=== PATIENT | male | born 1950 | race Caucasian/White ===

== ENCOUNTER → 2016-06-27 | Outpatient (CLI) | payer OTHER ==
[~2016-06-27] MED LIST: COMBIVENT INH; FLOMAX0.4 MG PO; LEVAQUIN 750 M750 MG PO; TENORMIN25 MG PO
[2016-06-27 16:09] LABS: CREATININE 0.8 mg/dL (0.6-1.3)
== END ==
LOC: ULTRA 13:02 → RAD 13:02 → CAT 13:02 → RAD 13:11
PROVIDERS: Internal Medicine Pulmonary Disease
DX: C15.9 Malignant neoplasm of esophagus, unspecified (principal); R06.02 Shortness of breath; M79.89 Other specified soft tissue disorders; R91.8 Other nonspecific abnormal finding of lung field; J98.11 Atelectasis; J18.9 Pneumonia, unspecified organism; J90 Pleural effusion, not elsewhere classified; R07.9 Chest pain, unspecified; M79.604 Pain in right leg; M79.605 Pain in left leg

== ENCOUNTER → 2016-07-14 | Outpatient (CLI) | payer OTHER | LOC: RAD 11:13 → SPEECH 11:13 → RAD 14:07 | DX: R13.12 Dysphagia, oropharyngeal phase (principal) ==

== ENCOUNTER 2016-09-15 10:22 | Inpatient (IN) | payer OTHER ==
[~2016-09-15] VITALS: Ht 175.3 cm; Wt 75.8 kg
[2016-09-15] VITALS (8 sets, daily range): BP systolic 86–114; BP diastolic 51–76
--- NOTE | ~2016-09-15 | 2DMMODE ---
[place] [address] [facility] [address] 2 D/M-MODE ECHOCARDIOGRAM Name: ASHWINI CRAMER Deshawn Room #: 205-P [facility] IN .R.#: [id number] Admission: 09/15/16 Attend Phys: Wu Hayes, Discharge: Date of : 50 Date of Service: 09/16/16 0944 Report #: [id number] THIS REPORT FOR: //name// APPROVED REPORT Study performed: 09/15/2016 11:34:04 EXAM: Comprehensive 2D, Doppler, and color-flow Echocardiogram Patient Location: ER Status: routine Other Information Study Quality: Adequate Indications Syncope, hypotension, bradycardia. 2D Dimensions RVDd: 27.91 mm LVEF(%): 51.42 (>50%) IVSd: 9.12 (7-11mm) LVOT Diam: 24.30 (18-24mm) LVDd: 34.96 mm PWd: 9.89 (7-11mm) LVDs: 26.02 (25-40mm) Aortic Root: 34.05 mm Hawkins's LVEF: 51.42 % Volumes Left Atrial Volume (Systole) Single Plane 4CH: 56.40 mL Single Plane 2CH: 55.88 mL LA ESV Index: 34.00 mL/m2 Aortic Valve AoV Peak Bharathi.: 0.74 m/s AO Peak Gr.: 2.18 mmHg LVOT Max P.26 mmHg LVOT Max V: 0.75 m/s AKIRA Vmax: 4.72 cm2 Mitral Valve E/A Ratio: 3.1 MV Decel. Time: 174.28 ms MV E Max Bharathi.: 1.63 m/s MV A Bharathi.: 0.53 m/s MV PHT: 50.54 ms IVRT: 46.14 ms [facility] [place] [address] 2 D/M-MODE ECHOCARDIOGRAM Name: ASHWINI CRAMER Room #: 205-P [facility] IN M.R.#: [id number] Admission: 09/15/16 Attend Phys: Wu Hayes, Discharge: Date of : 50 Date of Service: 09/16/16 0944 Report #: [id number] Pulmonary Valve PV Peak Bharathi.: 0.32 m/s PV Peak Gr.: 0.41 mmHg Tricuspid Valve TR Peak Bharathi.: 1.91 m/s RAP Estimate: 15.00 mmHg TR Peak Gr.: 14.64 mmHg RVSP: 30.00 mmHg Left Ventricle The left ventricle is normal size. There is normal LV segmental wall motion. There is normal left ventricular wall thickness. Left ventricular systolic function is normal. LVEF is 55%. Grade III - reversible restrictive diastolic dysfunction. Right Ventricle The right ventricle is normal size. Right ventricle appears hypokinetic. Atria Left atrium is mildly dilated. The right atrium size is normal. Aortic Valve Aortic valve leaflets are mildly thickened. Mild aortic regurgitation. Small aortic valve vegetation is present. There is no aortic valvular stenosis. Mitral Valve Mild mitral annular calcification. Mild-moderate mitral regurgitation Tricuspid Valve The tricuspid valve is normal in structure. There is moderate tricuspid regurgitation. The right atrial pressure is estimated at 15 mmHg. There is mild pulmonary hypertension with an estimated PAP of 30mmHg. Pulmonic Valve The pulmonary valve is normal in structure. Trace pulmonic regurgitation. Great Vessels Aortic root is mildly dilated. Ascending aorta is not well visualized. IVC is dilated and collapses <50% with inspiration. [facility] [address] [place] [address] 2 D/M-MODE ECHOCARDIOGRAM Name: ASHWINI CRAMER Deshawn Room #: 205-P [facility] IN .R.#: [id number] Admission: 09/15/16 Attend Phys: Wu Hayes, Discharge: Date of : 50 Date of Service: 09/16/16 0944 Report #: [id number] Pericardium No pericardial effusion Critical Notification Critical Value: Yes Physician Notified Date: 09/16/2016 Physician Name:Dr. Clay <Conclusion> Left ventricular systolic function is normal. There is normal LV segmental wall motion. EF 55% Grade III - reversible restrictive diastolic dysfunction. RV enlarged and hypokinetic Aortic valve leaflets are mildly thickened. Small aortic valve vegetation is present. Mild aortic regurgitation. No stenosis Mild-moderate mitral regurgitation There is mild pulmonary hypertension with an estimated PAP of 30mmHg. No pericardial effusion <ELECTRONICALLY SIGNED> By: Jose Alberto Lincoln MD, [facility] 09/16/1644 3 3 Jose Alberto Lincoln MD, FAC /INF
--- NOTE | ~2016-09-15 | EKG ---
[address] [address] ELECTROCARDIOGRAM REPORT Name: ASHWINI CRAMER Room #: 205- ADM IN M.R.#: [id number] Admission: 09/15/16 Attend Phys: Wu Hayes MD Discharge: Date of : 50 Report #: [id number] THIS REPORT FOR: //name// [facility] ED Test Date: 2016-09-15 Test Time: 10:34:59 Pat Name: ASHWINI CRAMER Department: Room: 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 HARTLEY : 1950 Requested By: Nyla George Order Number: [id number] MD: Jose Alberto Lincoln Measurements Intervals [place] Rate: 77 P: 31 UT: 254 QRS: 131 QRSD: 141 T: 25 QT: 452 QTc: 512 Interpretive Statements Sinus rhythm Prolonged UT interval Right bundle branch block Possible lateral infarct, old Compared to ECG 05/10/2016 16:03:[address] segment elevation no longer present Electronically Signed On 09-16-2016 8:17:08 CDT by Jose Alberto Lincoln [email or web address] <ELECTRONICALLY SIGNED> By: Jose Alberto Lincoln MD, FACC 09/16/16 0817 1034 1034 Jose Alberto Lincoln MD, [facility] /EPI
--- NOTE | ~2016-09-15 | 2DMMODE ---
[address] [address] 2 D/M-MODE ECHOCARDIOGRAM Name: ASHWINI CRAMER Room #: 205-P ADM IN M.R.#: [id number] Admission: 09/15/16 Attend Phys: Wu Hayes, Discharge: Date of : 50 Date of Service: 09/16/16 1119 Report #: [id number] THIS REPORT FOR: //name// APPROVED REPORT Study performed: 09/16/2016 08:10:52 EXAM: Comprehensive 2D, Doppler, and color-flow Echocardiogram Patient Location: [facility] Room #: 1 Status: stat Other Information Study Quality: Good Indications Arrhythmia Left Ventricle The left ventricle is normal size. There is normal left ventricular wall thickness. The left ventricular systolic function is normal. The left ventricular ejection fraction is within the normal range. LVEF is 55-60%. Right Ventricle The right ventricle is normal size. The right ventricular systolic function is normal. Atria Left atrium is dilated. Right atrium is at the upper limits of normal. Aortic Valve The aortic valve is normal in structure. Mitral Valve The mitral valve is normal in structure. Tricuspid Valve The tricuspid valve is normal in structure. Pulmonic Valve The pulmonary valve is normal in structure. Great Vessels [address] [address] 2 D/M-MODE ECHOCARDIOGRAM Name: ASHWINI CRAMER Room #: 205-P ADM IN M.R.#: [id number] Admission: 09/15/16 Attend Phys: Wu Hayes, Discharge: Date of : 50 Date of Service: 09/16/16 1119 Report #: [id number] The aortic root is normal in size. IVC is dilated and collapses <50% with inspiration. Pericardium There is no pericardial effusion. <Conclusion> The left ventricle is normal size. LVEF is 55-60%. Left atrium is dilated. The aortic valve is normal in structure. The mitral valve is normal in structure. The tricuspid valve is normal in structure. The pulmonary valve is normal in structure. IVC is dilated and collapses <50% with inspiration. <ELECTRONICALLY SIGNED> By: Edilson Self MD 09/16/16 1119 18 Edilson Self MD /INF
--- NOTE | ~2016-09-15 | D ---
[facility] [place] [address] DISCHARGE SUMMARY Name: ASHWINI CRAMER Room #: 205-P [facility] IN M.R.#: [id number] Admission: 09/15/16 Attend Phys: Wu Hayes MD Discharge: 09/17/16 Date of : 50 Report #: [id number] THIS REPORT FOR: //name// CC: Rose Mary Hayes DISCHARGE SUMMARY: 1. Heart block with dual chamber pacemaker implantation. 2. Syncope related to #1 above. 3. Esophageal cancer. HISTORY OF PRESENT ILLNESS: For the complete details of the history of present illness, see dictated history and physical briefly. The patient is a 66-year-old gentleman who presented to the Emergency Department following 3 syncopal episodes in the past 18 hours. While he was admitted for further evaluation. HOSPITAL COURSE: While on telemetry monitoring, complete heart block was identified. He was seen in consultation by Dr. Basilio Clay and underwent dual chamber pacemaker implantation with a [employer] device. His postprocedure course was uneventful. Pacing thresholds were excellent. DISCHARGE MEDICATIONS: Flomax 0.4 mg daily, atenolol 12.5 mg daily. Discharge medicines were reconciled. Discharge diet, low fat, low cholesterol, heart healthy diet. DISCHARGE FOLLOWUP: With Dr. Clay in 7-10 days for site check and followup with Dr. Bowens in 2-3 months. DISCHARGE ACTIVITY: As instructed post-pacemaker implantation. DISCHARGE CONDITION: Stable and improved. <ELECTRONICALLY SIGNED> By: Jose Alberto Lincoln MD, FACC 09/18/16 1050 0757 1606 Jose Alberto Lincoln MD, FACC /nt
--- NOTE | ~2016-09-15 | P ---
[facility] [place] [address] PROCEDURE REPORT Name: ASHWINI CRAMER Room #: 205-P ADM IN M.R.#: [id number] Admission: 09/15/16 Attend Phys: Wu Hayes MD Discharge: Date of : 50 Report #: [id number] THIS REPORT FOR: //name// CC: Rose Mary Hayes DATE OF SERVICE: 09/16/2016 PROCEDURE: Pacemaker insertion. PREOPERATIVE DIAGNOSIS: Syncope, right bundle branch block and third-degree heart block. HISTORY OF PRESENT ILLNESS: The patient is a 66-year-old who presents with 3 episodes of syncope at home. He had no prodrome. His EKG shows a first-degree AV block and a right bundle branch block. On telemetry overnight, he had frequent episodes of complete heart block with a ventricular escape in the 20s to 30s. He had an echo prior to the pacemaker showing normal LV size and function. He is here for dual-chamber pacemaker insertion. ANESTHESIA: The patient underwent MAC anesthesia with no anesthesia related complications. DESCRIPTION OF PROCEDURE: The patient underwent informed consent. We discussed the details of the procedure including the risks, which include, but not limited to bleeding, infection, vascular damage, cardiac perforation, and pneumothorax. He understood these risks and is willing to proceed. As such, he is brought to the EP laboratory in a fasting and sedated state and prepped and draped in a sterile fashion. He received IV antibiotics prior to initiation of the procedure and underwent a venogram showing patency of the left axillary vein. Next, 20 mL of lidocaine was injected below the level of left clavicle. Incision was made, pocket was created over the prepectoral fascia. An access was obtained twice in the left axillary vein. prior to attempting to place the lead, the patient did have an episode of complete heart block with a ventricular escape in the 30s, which lasted around 20-30 seconds. I quickly placed the sheath in and placed the lead into the right ventricular apical septum, which had adequate pacing and sensing thresholds. Next, I positioned an atrial lead into the right atrial appendage. Of note, there was not a lot of atrial movement, which may be due to the extensive radiation he had previously with some atrial fibrosis. We were able to get an adequate pacing and sensing threshold in the atrium. Both leads were sutured to the prepectoral fascia and the device was connected to leads. The pocket was closed in 2 layers using 2-0 for the deep layer, 3-0 for the middle layer and surgical glue was placed to the outer skin layer. He had no complications and no significant bleeding. The implanted pacemaker was a [employer] model #[id number], serial #[id number] [address] PROCEDURE REPORT Name: ASHWINI CRAMER Room #: 205-P [facility] IN M.R.#: [id number] Admission: 09/15/16 Attend Phys: Wu Hayes MD Discharge: Date of : 50 Report #: [id number] with an atrial lead that was a [employer] model #2088TC, 52 cm, serial #[id number] with a P-wave of 1 millivolt, pacing impedance of 410 ohms and the pacing threshold of 1 volt at 0.4 milliseconds. The RV lead was a [employer] model #2088TC, 58 cm, serial #[id number] with a R-wave of 2.8 millivolts, pacing impedance of 580 ohms and pacing threshold of 1 volt at 0.4 milliseconds. The device was programmed to the DDD 60-130 mode. CONCLUSIONS: 1. Successful dual-chamber pacemaker implantation. 2. Satisfactory atrial and ventricular pacing and sensing thresholds. By: 1136 1422 Basilio Clay MD /nt
[2016-09-15 10:55] LABS: HEMATOCRIT 36.5 % (42.0-52.0); MCH 27.6 pg (26.0-34.0); MCHC 32.8 g/dL (28.0-37.0); MCV 84.1 fL (80.0-100.0); PLATELET COUNT 173 thou/uL (150-400); RBC 4.34 mil/uL (4.50-6.00); RDW 18.2 % (10.5-14.5); WBC 4.7 thou/uL (4.0-11.0)
[2016-09-15 10:57] LABS: MANUAL DIFF YES
[2016-09-15 11:02] LABS: ANION GAP 8 mmol/L (7-16); BUN 15 mg/dL (7-18); CALCIUM 9.1 mg/dL (8.5-10.1); CHLORIDE 94 mmol/L (98-107); CO2 27 mmol/L (21-32); CREATININE 0.9 mg/dL (0.7-1.3); GLUCOSE 114 mg/dL (74-106); POTASSIUM 4.5 mmol/L (3.5-5.1); SODIUM 129 mmol/L (136-145)
[2016-09-15 11:13] LABS: ALBUMIN 3.8 g/dL (3.4-5.0); ALKALINE PHOSPHATASE 60 U/L (46-116); NT-PRO BRAIN NAT PEPTIDE 1153 pg/mL (<300); SGOT 33 U/L (15-37); SGPT 20 U/L (30-65); TOTAL BILIRUBIN 1.3 mg/dL (<0.1-1.0); TOTAL PROTEIN 7.6 g/dL (6.4-8.2); TROPONIN-I < 0.04 ng/mL (<0.04-0.07)
[2016-09-15 12:29] LABS: ABSOLUTE NEUTROPHILS 3.9 thou/uL (1.4-8.2); TOTAL CELL COUNT 100
[2016-09-15 12:30] LABS: ANISOCYTOSIS 1+; OVALOCYTES FEW
[2016-09-16 03:36] VITALS: BP 109/71
[2016-09-16 05:05] LABS: HEMATOCRIT 34.4 % (42.0-52.0); HEMOGLOBIN 11.5 gm/dL (14.0-18.0); MCH 27.6 pg (26.0-34.0); MCHC 33.5 g/dL (28.0-37.0); MCV 82.3 fL (80.0-100.0); RBC 4.18 mil/uL (4.50-6.00); RDW 18.2 % (10.5-14.5); WBC 4.1 thou/uL (4.0-11.0)
[2016-09-16 08:25] LABS: APTT 31.2 Seconds (24.5-32.8); INR 1.4; PROTIME 14.4 Seconds (9.3-11.4)
[2016-09-16 17:25] VITALS: BP 119/80
[2016-09-16 19:19] VITALS: BP 133/77
[2016-09-16 23:45] VITALS: BP 100/68
[2016-09-17 04:30] VITALS: BP 104/70
[2016-09-17 08:31] VITALS: BP 122/81
[2016-09-17 11:01] VITALS: BP 122/81
[2016-09-17 12:11] VITALS: BP 100/69
== END 2016-09-17 12:00 | disposition home or self-care (01) | DRG 243 ==
LOC: ER 10:22 → 2N 11:46 → EROBS 11:46 → 2N 12:32
PROVIDERS: Internal Medicine; Internal Medicine Cardiovascular Disease; Physician Assistant
PROC: 02H63JZ Insertion of Pacemaker Lead into Right Atrium, Percutaneous Approach (ICD-10-PCS; principal; 2016-09-16)
PROC: 0JH606Z Insertion of Pacemaker, Dual Chamber into Chest Subcutaneous Tissue and Fascia, Open Approach (ICD-10-PCS; principal; 2016-09-16)
PROC: 02HK3JZ Insertion of Pacemaker Lead into Right Ventricle, Percutaneous Approach (ICD-10-PCS; principal; 2016-09-16)
DX: I44.2 Atrioventricular block, complete (principal); E87.1 Hypo-osmolality and hyponatremia; I50.30 Unspecified diastolic (congestive) heart failure; I45.10 Unspecified right bundle-branch block; I95.9 Hypotension, unspecified; I11.0 Hypertensive heart disease with heart failure; I45.2 Bifascicular block; N40.0 Benign prostatic hyperplasia without lower urinary tract symptoms; Z85.01 Personal history of malignant neoplasm of esophagus; Z92.21 Personal history of antineoplastic chemotherapy; Z92.3 Personal history of irradiation; Z87.891 Personal history of nicotine dependence; Z82.3 Family history of stroke; Z82.49 Family history of ischemic heart disease and other diseases of the circulatory system
CPT/HCPCS: 10081; 62110; 62900; 70005

== ENCOUNTER 2016-09-26 11:20 | Emergency (ER) | payer OTHER ==
[~2016-09-26] VITALS: Ht 175.3 cm; Wt 74.8 kg
--- NOTE | ~2016-09-26 | EKG ---
[address] [address] ELECTROCARDIOGRAM REPORT Name: ASHWINI CRAMER Room #: [facility]#: [id number] Admission: 09/26/16 Attend Phys: Discharge: 09/26/16 Date of : 50 Report #: [id number] THIS REPORT FOR: //name// 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
[2016-09-26] MEDS ORDERED: TENORMIN25 MG PO (12:28)
[2016-09-26 12:29] LABS: HEMATOCRIT 33.5 % (42.0-52.0); MANUAL DIFF YES; MCH 27.4 pg (26.0-34.0); MCHC 32.9 g/dL (28.0-37.0); MCV 83.3 fL (80.0-100.0); PLATELET COUNT 165 thou/uL (150-400); RBC 4.03 mil/uL (4.50-6.00); RDW 18.3 % (10.5-14.5); WBC 5.1 thou/uL (4.0-11.0)
[2016-09-26 12:39] LABS: ANION GAP 2 mmol/L (7-16); BUN 14 mg/dL (7-18); CALCIUM 9.2 mg/dL (8.5-10.1); CHLORIDE 100 mmol/L (98-107); CO2 29 mmol/L (21-32); CREATININE 0.7 mg/dL (0.7-1.3); GLUCOSE 115 mg/dL (74-106); POTASSIUM 4.7 mmol/L (3.5-5.1); SODIUM 131 mmol/L (136-145)
[2016-09-26 12:45] LABS: APTT 27.4 Seconds (24.5-32.8); INR 1.3; PROTIME 13.7 Seconds (9.3-11.4)
[2016-09-26 12:51] LABS: NT-PRO BRAIN NAT PEPTIDE 1557 pg/mL (<300); TROPONIN-I < 0.04 ng/mL (<0.04-0.07)
[2016-09-26 13:01] LABS: PLATELET ESTIMATE NORMAL; TOTAL CELL COUNT 100
[2016-09-26 13:02] LABS: ANISOCYTOSIS 1+
== END 2016-09-26 15:02 | disposition home or self-care (01) ==
LOC: ER 11:20
PROVIDERS: Emergency Medicine
DX: R06.00 Dyspnea, unspecified (principal); J98.4 Other disorders of lung; I50.9 Heart failure, unspecified; Z98.890 Other specified postprocedural states; Z85.01 Personal history of malignant neoplasm of esophagus; Z92.21 Personal history of antineoplastic chemotherapy; Z87.891 Personal history of nicotine dependence

== ENCOUNTER 2016-11-30 21:43 | Emergency (ER) | payer OTHER ==
[~2016-11-30] VITALS: Ht 175.3 cm; Wt 68.0 kg
--- NOTE | ~2016-11-30 | EKG ---
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 : 1950 Requested By: Yanci Cralson Order Number: [id number] MD: Jose Alberto Lincoln Measurements Intervals [place] Rate: 109 P: 0 HI: 162 QRS: 131 QRSD: 133 T: -2 QT: 376 QTc: 507 Interpretive Statements Sinus tachycardia RBBB and LPFB Compared to ECG 09/26/2016 12:30:34 Heart rate has increased Electronically Signed On 12-01-2016 8:00:16 CDT by Jose Alberto Lincoln [email or web address] <ELECTRONICALLY SIGNED> By: Jose Alberto Lincoln MD, [facility] 12/01/16 0800 50 50 Jose Alberto Lincoln MD, [facility] /EPI
[2016-11-30] MEDS ORDERED: POTASSIUM99 M1 PO (21:55)
[2016-11-30] MEDS ORDERED: PRADAXA150 MG PO (21:55)
[2016-11-30] MEDS ORDERED: LASIX 20 MG TAB20 MG PO (21:56)
[2016-11-30] MEDS ORDERED: VITAMIN D2000 UNIT PO (21:56)
[2016-11-30] MEDS ORDERED: VITAMIN B-12500 MCG PO (21:56)
[2016-11-30] MEDS ORDERED: UNICOMPLEX M TA1 TA1 PO (21:56)
[2016-11-30] MEDS ORDERED: FOLIC ACID1 MG PO (21:56)
[2016-11-30 22:17] LABS: ABSOLUTE NEUTROPHILS 3.5 thou/uL (1.4-8.2); BASOPHILS 0.8 % (0.0-2.0); EOSINOPHILS 2.2 % (0.0-3.0); HEMATOCRIT 33.8 % (42.0-52.0); HEMOGLOBIN 11.4 gm/dL (14.0-18.0); LYMPHOCYTES 11.6 % (24.0-44.0); MCH 27.5 pg (26.0-34.0); MCHC 33.7 g/dL (28.0-37.0); MCV 81.7 fL (80.0-100.0); PLATELET COUNT 179 thou/uL (150-400); POLYS 74.4 % (36.0-66.0); RBC 4.13 mil/uL (4.50-6.00); RDW 18.3 % (10.5-14.5); WBC 4.8 thou/uL (4.0-11.0)
[2016-11-30 22:18] LABS: MANUAL DIFF NO
[2016-11-30 22:21] LABS: CALCIUM 9.4 mg/dL (8.5-10.1); CREATININE 0.7 mg/dL (0.7-1.3); POTASSIUM 4.2 mmol/L (3.5-5.1)
== END 2016-11-30 23:09 | disposition home or self-care (01) ==
LOC: ER 21:43
PROVIDERS: Emergency Medicine
DX: R20.2 Paresthesia of skin (principal); R42 Dizziness and giddiness; I50.9 Heart failure, unspecified; Z95.0 Presence of cardiac pacemaker; Z90.89 Acquired absence of other organs; Z85.01 Personal history of malignant neoplasm of esophagus; Z92.3 Personal history of irradiation; Z92.21 Personal history of antineoplastic chemotherapy; Z87.891 Personal history of nicotine dependence

== ENCOUNTER → 2016-12-22 | Outpatient (CLI) | payer OTHER ==
[~2016-12-22] MED LIST changes: +FOLIC ACID1 MG PO; +LASIX 20 MG TAB20 MG PO; +POTASSIUM99 M1 PO; +PRADAXA150 MG PO; +UNICOMPLEX M TA1 TA1 PO; +VITAMIN B-12500 MCG PO; +VITAMIN D2000 UNIT PO
== END ==
LOC: RAD 13:11
DX: R06.02 Shortness of breath (principal)

== ENCOUNTER 2016-12-30 06:33 | Observation (INO) | payer OTHER ==
[~2016-12-30] VITALS: Ht 172.7 cm; Wt 77.8 kg
[2016-12-30] VITALS (9 sets, daily range): BP systolic 79–105; BP diastolic 51–74
--- NOTE | ~2016-12-30 | P ---
[facility] [place] [address] PROCEDURE REPORT Name: ASHWINI CRAMER Room #: 207-P [facility] Brea M.RCorrie#: [id number] Admission: 12/30/16 Attend Phys: Basilio Clay MD Discharge: 12/31/16 Date of : 50 Report #: [id number] THIS REPORT FOR: //name// CC: Rose Mary Clay PROCEDURE PERFORMED: SVT ablation. HISTORY OF PRESENT ILLNESS: The patient consent is a 66-year-old with a history of esophageal cancer, status post esophagectomy and extensive mediastinal radiation, who has a history of sick sinus syndrome, status post [employer] dual-chamber pacemaker implantation. He was recently found to be in atrial flutter. He is here for atrial flutter ablation. ANESTHESIA: The patient underwent MAC anesthesia with no anesthesia-related complications. DESCRIPTION OF PROCEDURE: The patient underwent informed consent. We discussed the details of the procedure including the risks, which included but are not limited to bleeding, vascular damage, cardiac perforation or damage to the [place] tribe conduction system. Risks also include stroke and NE and possible dislodgement of his leads. He understood these risks and is willing to proceed. The patient was brought to the EP laboratory in a fasting and sedated state. I injected lidocaine to the right groin region and obtained access to the right femoral vein x 3. Initially, my plan was to perform atrial flutter ablation. Based on his EKGs in clinic, this looked like it could potentially be a typical atrial flutter, but I discussed with the patient given his extensive radiation to the chest that this could also be an atypical atrial flutter. As such, I obtained access to the right femoral vein x 3, placing an 8 Yoruba and two 7-Yoruba short sheath. Under fluoroscopy, I attempted to place a decapolar catheter into his coronary sinus. I spent about 20 minutes trying to find the coronary sinus and I could never really locate this. To try and orient myself, I found the His bundle, which appeared to be more posterior than usual. It appeared that his anatomy was quite distorted likely to his prior esophagectomy and gastric pull through. I, therefore, could not place anything into the coronary sinus. I also attempted to place my Halo catheter into the right atrium, and again, this was somewhat challenging. At the time of his pacemaker implantation, the patient had very poor atrial signals and therefore, I had to place the atrial lead in a very lateral position. When I would try to place my Halo in its standard position, it would entangle the atrial lead. As such, I decided against placing this wire as well. Of note, while I was attempting to place my decapolar catheter into the coronary sinus, his atrial flutter terminated. Prior to termination, the atrial cycle length was 350 milliseconds with the ventricular cycle length of 588 milliseconds, a QRS duration of 130 milliseconds with a right bundle branch block morphology and a QT interval of 430 milliseconds. The flutter morphology was negative in leads II and AV 2, [address] [address] PROCEDURE REPORT Name: ASHWINI CRAMER [place] Room #: 207-P [facility] Toro#: [id number] Admission: 12/30/16 Attend Phys: Basilio Clay MD Discharge: 12/31/16 Date of : 50 Report #: [id number] and aVF. Once he converted he was in sinus rhythm with sinus cycle length of 665 milliseconds, a MO interval of 185 milliseconds, QRS duration of 130 milliseconds, QT interval of 437 milliseconds, an AH interval of 80 milliseconds and HV interval of 75 milliseconds. Next, I performed a basic EP study pacing from the decapolar catheter from the high right atrium. AV block was noted at 340 milliseconds. Atrial ERP was noted at 270 milliseconds at a [address] cycle length. He would have frequent bursts of what appeared to be an atrial flutter, but these were nonsustained. Next, isoproterenol was initiated at 1 mcg per minute and I was able to induce his tachycardia at 270 milliseconds at a [address] cycle length. The atrial cycle length was anywhere between 340 milliseconds to 440 milliseconds, but it mostly had a cycle length at around 380 milliseconds. As such, I placed a [employer] ablation catheter into the right atrium. I created a detailed 3D geometry and voltage map. This voltage map showed that essentially the entire atrium was scarred. There were some small atrial signals along the anterior septum at the superior aspect of the right atrium. There were also larger atrial signals along the kassandra terminalis, but essentially the rest of the atrium was scar tissue, with almost no atrial activity. I attempted to map this atrial flutter. However, when I would place my ablation catheter high in the right atrium along an area of fractionated atrial signals, the tachycardia would terminate. I was able to re-induce it and again it would terminate in this same location. I attempted to re-induce the tachycardia and I could only get nonsustained episodes at this point. As such, I performed ablation along this area fractionated atrial electrograms along the anterior septal aspect of the atrium and I connected these fractionated areas to the remaining scar tissue. Furthermore, I went out laterally and took care of areas of fractionated atrial signals and essentially performed a substrate modification in this location, hoping that this was what was resulting in his reentrant tachycardia. I performed a total of 20 ablation lesions, each for about 30 seconds. In the high right atrium, I did perform high-output pacing from the ablation catheter to ensure that there was no phrenic nerve compromise. Next, given that his initial tachycardia was suggestive of a typical atrial flutter, I placed a Ramp sheath into the right atrium and placed my ablation catheter in this. I performed an ablation line at 6 o'clock along the cavotricuspid isthmus. Again, there were very low atrial signals and maybe 2 spots that showed some sharp atrial signals. I performed ablation along this line and looked to see if there were any other areas to ablate and essentially, this area was scarred. Post-ablation, the patient was in sinus rhythm with a sinus cycle length of 720 milliseconds, MO interval 200 milliseconds, QRS duration 130 milliseconds with a [facility] [address] [place] [address] PROCEDURE REPORT Name: ASHWINI CRAMER Room #: 207-P [facility] Brea Toro#: [id number] Admission: 12/30/16 Attend Phys: Basilio Clay MD Discharge: 12/31/16 Date of : 50 Report #: [id number] right bundle branch morphology and a QT interval of 440 milliseconds. As such, all catheters and sheaths were pulled. Hemostasis was obtained and the patient awoke neurologically and hemodynamically intact, with no complications and no significant bleeding. His pacemaker was reprogrammed to its original settings and the leads were found to be functioning normally. CONCLUSIONS: 1. Successful ablation of likely an atypical atrial flutter arising from scar issue within the right atrium. 2. Normal SA ines function. 3. Normal AV ines function. 4. Abnormal His-Purkinje function with an HV interval of 74 milliseconds. 5. Successful pacemaker reprogramming. By: 1115 1311 Basilio Clay MD /nt
[2016-12-30 07:02] LABS: HEMATOCRIT 36.3 % (42.0-52.0); HEMOGLOBIN 11.8 gm/dL (14.0-18.0); MCHC 32.6 g/dL (28.0-37.0); MCV 82.9 fL (80.0-100.0); PLATELET COUNT 165 thou/uL (150-400); RBC 4.38 mil/uL (4.50-6.00); RDW 18.3 % (10.5-14.5); WBC 4.4 thou/uL (4.0-11.0)
[2016-12-30 07:03] LABS: MANUAL DIFF YES
[2016-12-30 07:12] LABS: CALCIUM 9.5 mg/dL (8.5-10.1); POTASSIUM 4.2 mmol/L (3.5-5.1)
[2016-12-30 07:16] LABS: APTT 30.7 Seconds (24.5-32.8); INR 1.3; PROTIME 13.6 Seconds (9.3-11.4)
[2016-12-30 07:17] LABS: TOTAL BILIRUBIN 1.3 mg/dL (<0.1-1.0); TOTAL PROTEIN 8.1 g/dL (6.4-8.2)
[2016-12-30] MEDS ORDERED: POTASSIUM20 PO (07:17)
[2016-12-30] MEDS ORDERED: LOPRESSOR50 PO (07:18)
[2016-12-30] MEDS ORDERED: CO Q-10100 MG PO (07:19)
[2016-12-30] MEDS ORDERED: CENTRUM COMPLE1 EACH PO (07:19)
[2016-12-30] MEDS ORDERED: VITAMINC500 PO (07:20)
[2016-12-30] MEDS ORDERED: PEPTO-BISMOL1 TAB PO (07:21)
[2016-12-30] MEDS ORDERED: BIOTIN1000 MCG PO (07:21)
[2016-12-30 07:27] LABS: ABSOLUTE NEUTROPHILS 3.1 thou/uL (1.4-8.2); TOTAL CELL COUNT 100
[2016-12-30 07:28] LABS: ANISOCYTOSIS 2+; OVALOCYTES FEW
[2016-12-31 04:49] VITALS: BP 102/73
[2016-12-31 07:42] VITALS: BP 101/68
[2016-12-31 08:48] VITALS: BP 101/68
[2016-12-31 10:35] VITALS: BP 101/68
[2016-12-31 11:39] VITALS: BP 109/79
[2016-12-31 14:13] VITALS: BP 101/68
== END 2016-12-31 13:30 | disposition home or self-care (01) ==
LOC: CATH 06:33 → 2N 14:36
PROVIDERS: Internal Medicine Cardiovascular Disease
DX: I48.3 Typical atrial flutter (principal); I50.30 Unspecified diastolic (congestive) heart failure; Z95.0 Presence of cardiac pacemaker; Z87.891 Personal history of nicotine dependence
CPT/HCPCS: 62110; 62900; 70005

== ENCOUNTER 2017-01-25 01:46 | Inpatient (IN) | payer OTHER ==
[~2017-01-25] VITALS: Ht 172.7 cm; Wt 63.7 kg
[2017-01-25] VITALS (10 sets, daily range): BP systolic 99–114; BP diastolic 55–72
--- NOTE | ~2017-01-25 | EKG ---
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
--- NOTE | ~2017-01-25 | S ---
[facility] [place] [address] SURGICAL PATH RPT PROCEDURE Name: TIM CRAMER RAY Room #: 439-P ADM IN M.R.#: [id number] Admission: 01/25/17 Date of : 50 Discharge: Report #: [id number] Path Case #: [id number] PATHOLOGY REPORT COLLECTION DATE: 01/25/2017 RECEIVED DATE: 01/25/2017 SUBMITTING PHYS: Dr. Mahamed Kirk, DO OTHER PHYS: Dr. Eduardo Hsu SPECIMEN(S) RECEIVED: A.Hernia sac * * * * * * * * * * * * FINAL DIAGNOSIS: Hernia sac, repair: - Fibrovascular connective tissue with moderate congestion, dense chronic inflammation including hemosiderin-laden macrophages consistent with reactive changes of hernia sac. (IUV:kelly; 01/26/2017) PATHOLOGIST: Dana Paz M.D. REPORT ELECTRONICALLY SIGNED BY: Dana Paz M.D. DATE/TIME: 01/26/2017 15:36 * * * * * * * * * * * * GROSS PATHOLOGY: Received in formalin labeled "Tim Cramer, hernia sac," are 2 pieces of fibromembranous tissue with attached fibroadipose tissue measuring 1.9 x 1.0 x 0.8 cm and 2.6 x 1.4 x 0.9 cm. No nodules or lesions are identified. Food Service Sales Representatives tissue is submitted in cassette A1. (TSD; 01/25/2017) CLINICAL HISTORY: Incarcerated ventral hernia, [id number] INITIAL CPT CODE(S): A; 43471 Professional services performed by [facility] at [facility] [address], [place] [address] Technical services performed by [facility] at [address] [place] [address]. [facility] [address] [place] [place] [address] SURGICAL PATH RPT PROCEDURE Name: TIM CRAMER BENTON Room #: 439-P ADM IN M.R.#: [id number] Admission: 01/25/17 Date of : 50 Discharge: Report #: [id number] Path Case #: [id number] [facility] [address] [address] PHONE: [phone] DIRECTOR: Glenn Justin M.D. * * * END OF REPORT * * *
--- NOTE | ~2017-01-25 | EKG ---
[address] [place] [address] ELECTROCARDIOGRAM REPORT Name: ASHWINI CRAMER Room #: 439-P ADM IN M.R.#: [id number] Admission: 01/25/17 Attend Phys: Eduardo Hsu MD Discharge: Date of : 50 Report #: [id number] THIS REPORT FOR: //name// [facility] ED Test Date: 2017-01-25 Test Time: 03:51:54 Pat Name: ASHWINI CRAMER Department: Room: 439 Gender: M Animal Trainer: WARD : 1950 Requested By: Yanci Carlson Order Number: [id number] MD: Jose Alberto Lincoln Measurements Intervals [place] Rate: 92 P: 74 [place]: 151 QRS: 135 QRSD: 133 T: -19 QT: 405 QTc: 502 Interpretive Statements Sinus rhythm Right bundle branch block Probable lateral infarct, old Baseline wander in lead(s) V2 Compared to ECG 11/30/2016 21:51:25 No significant change was found Electronically Signed On 01-25-2017 7:45:40 CDT by Jose Alberto Lincoln [email or web address] <ELECTRONICALLY SIGNED> By: Jose Alberto Lincoln MD, [facility] 01/25/17 0745 035 0351 Jsoe Alberto Lincoln MD, [facility] /EPI
--- NOTE | ~2017-01-25 | CNG ---
[facility] [place] [address] CYTO-NONGYN REPORT PROCEDURE Name: TIM CRAMER Room #: 439-P ADM IN M.R.#: [id number] Admission: 01/25/17 Date of : 50 Discharge: Report #: [id number] Path Case #: [id number] CYTOPATHOLOGY REPORT COLLECTION DATE: 01/25/2017 RECEIVED DATE: 01/25/2017 SUBMITTING PHYS: Dr. Eduardo Hsu OTHER PHYS: Dr. Yanci Kirk, DO Dr Rose Mary Del Cid CLINICAL HISTORY: Incarcerated ventral hernia SPECIMEN(S) RECEIVED: A.Peritoneal fluid * * * * * * * * * * * * FINAL DIAGNOSIS: A. Peritoneal fluid: - No malignant epithelial cells identified. Mesothelial cells and predominantly chronic inflammatory cells present. PATHOLOGIST: Chata Valadez M.D. REPORT ELECTRONICALLY SIGNED BY: Chata Valadez M.D. DATE/TIME: 01/26/2017 11:03 * * * * * * * * * * * * GROSS PATHOLOGY: A. Peritoneal fluid: The specimen is submitted unfixed, labeled "Tim Cramer ". Received by the Cytology Department is 15 mL of cloudy red fluid. One ThinPrep slide and a formalin fixed cell block were prepared. (mm 01.25.2017) SENIOR MARKETING ASSOCIATE(S): PRASANTH Woodward([facility]) INITIAL CPT CODE(S): A; 83840, 89398 Professional services performed by [facility] at [facility] [address], [place] [address] Technical services performed by [facility] at [address] [place] [address]., [address], [place], [place] [address]. [facility] [address] [place] [address], [address] [facility] [address] [place] [address] CYTO-NONGYN REPORT PROCEDURE Name: TIM CRAMER BENTON Room #: 439-P ADM IN M.R.#: [id number] Admission: 01/25/17 Date of : 50 Discharge: Report #: [id number] Path Case #: [id number] [place] [address] PHONE: [phone] DIRECTOR: Glenn Justin M.D. * * * END OF REPORT * * *
--- NOTE | ~2017-01-25 | EKG ---
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
[~2017-01-25 01:46] MED LIST changes: +BIOTIN1000 MCG PO; +CENTRUM COMPLE1 EACH PO; +CO Q-10100 MG PO; +LOPRESSOR50 PO; +PEPTO-BISMOL1 TAB PO; +POTASSIUM20 PO; +VITAMINC500 PO
[2017-01-25 02:14] LABS: HEMATOCRIT 39.7 % (42.0-52.0); MCH 27.2 pg (26.0-34.0); MCHC 32.6 g/dL (28.0-37.0); MCV 83.5 fL (80.0-100.0); PLATELET COUNT 208 thou/uL (150-400); RBC 4.76 mil/uL (4.50-6.00); RDW 17.5 % (10.5-14.5); WBC 7.2 thou/uL (4.0-11.0)
[2017-01-25 02:16] LABS: MANUAL DIFF YES
[2017-01-25 02:22] LABS: CALCIUM 10.7 mg/dL (8.5-10.1); POTASSIUM 4.2 mmol/L (3.5-5.1)
[2017-01-25 02:39] LABS: ALBUMIN 4.2 g/dL (3.4-5.0); DIRECT BILIRUBIN 0.5 mg/dL (<0.1-0.3); TOTAL BILIRUBIN 1.2 mg/dL (<0.1-1.0); TOTAL PROTEIN 8.7 g/dL (6.4-8.2)
[2017-01-25 02:40] LABS: ANISOCYTOSIS 1+; TOTAL CELL COUNT 100
[2017-01-25 02:51] LABS: URINE BILIRUBIN NEGATIVE (Negative); URINE BLOOD NEGATIVE (Negative); URINE COLOR YELLOW; URINE GLUCOSE-RANDOM* NEGATIVE (Negative); URINE KETONES NEGATIVE (Negative); URINE NITRITE NEGATIVE (Negative); URINE PROTEIN (DIPSTICK) NEGATIVE (Negative); URINE SPECIFIC GRAVITY 1.025 (1.003-1.035); URINE UROBILINOGEN 0.2 E.U./dl (0.2-1.0)
[2017-01-25 05:36] LABS: APTT 32.9 Seconds (24.5-32.8); INR 1.3; PROTIME 13.5 Seconds (9.3-11.4)
[2017-01-26 05:33] VITALS: BP 98/64
[2017-01-26 06:25] LABS: HEMATOCRIT 34.9 % (42.0-52.0); HEMOGLOBIN 11.5 gm/dL (14.0-18.0); MCH 27.5 pg (26.0-34.0); MCHC 32.9 g/dL (28.0-37.0); MCV 83.4 fL (80.0-100.0); RBC 4.18 mil/uL (4.50-6.00); RDW 17.5 % (10.5-14.5); WBC 6.9 thou/uL (4.0-11.0)
[2017-01-26 06:47] LABS: ALBUMIN 3.1 g/dL (3.4-5.0); CALCIUM 9.2 mg/dL (8.5-10.1); CREATININE 1.1 mg/dL (0.7-1.3); POTASSIUM 4.8 mmol/L (3.5-5.1); TOTAL BILIRUBIN 1.4 mg/dL (<0.1-1.0)
[2017-01-26 07:45] VITALS: BP 87/53
[2017-01-26 15:35] VITALS: BP 98/61
[2017-01-26 19:00] VITALS: BP 107/70
[2017-01-26 22:41] VITALS: BP 107/70
[2017-01-27 05:32] LABS: HEMATOCRIT 32.8 % (42.0-52.0); HEMOGLOBIN 10.8 gm/dL (14.0-18.0); MCH 27.7 pg (26.0-34.0); MCV 83.9 fL (80.0-100.0); RBC 3.91 mil/uL (4.50-6.00); RDW 17.5 % (10.5-14.5); WBC 5.7 thou/uL (4.0-11.0)
[2017-01-27 05:40] LABS: CALCIUM 8.8 mg/dL (8.5-10.1); CREATININE 0.9 mg/dL (0.7-1.3); POTASSIUM 4.1 mmol/L (3.5-5.1)
[2017-01-27 06:24] VITALS: BP 96/65
[2017-01-27 08:00] VITALS: BP 101/69
[2017-01-27 16:00] VITALS: BP 112/69
[2017-01-27 18:30] VITALS: BP 115/76
[2017-01-28 04:27] VITALS: BP 126/74
[2017-01-28 08:00] VITALS: BP 101/62
[2017-01-28 16:00] VITALS: BP 105/67
[2017-01-28 20:16] VITALS: BP 107/64
[2017-01-29 04:37] VITALS: BP 101/53
[2017-01-29 08:00] VITALS: BP 99/66
[2017-01-29 16:00] VITALS: BP 153/67
[2017-01-29 20:20] VITALS: BP 104/59
[2017-01-30 05:31] VITALS: BP 108/71
[2017-01-30 08:00] VITALS: BP 108/70
[2017-01-30 13:48] VITALS: BP 108/70
== END 2017-01-30 16:15 | disposition home or self-care (01) | DRG 353 ==
LOC: ER 01:46 → EROBS 03:41 → 4S 03:41
PROVIDERS: Emergency Medicine; Hospitalist; Surgery
PROC: 0WUF4JZ Supplement Abdominal Wall with Synthetic Substitute, Percutaneous Endoscopic Approach (ICD-10-PCS; principal; 2017-01-25)
DX: K43.6 Other and unspecified ventral hernia with obstruction, without gangrene (principal); K85.90 Acute pancreatitis without necrosis or infection, unspecified; I50.30 Unspecified diastolic (congestive) heart failure; I48.92 Unspecified atrial flutter; R18.8 Other ascites; Z96.89 Presence of other specified functional implants; K91.1 Postgastric surgery syndromes; N40.0 Benign prostatic hyperplasia without lower urinary tract symptoms; K66.0 Peritoneal adhesions (postprocedural) (postinfection); I48.91 Unspecified atrial fibrillation; R33.9 Retention of urine, unspecified; Z86.73 Personal history of transient ischemic attack (TIA), and cerebral infarction without residual deficits; Z85.01 Personal history of malignant neoplasm of esophagus; Z79.899 Other long term (current) drug therapy; Z87.891 Personal history of nicotine dependence; Z82.3 Family history of stroke; Z93.4 Other artificial openings of gastrointestinal tract status; Z92.21 Personal history of antineoplastic chemotherapy; Z28.21 Immunization not carried out because of patient refusal
CPT/HCPCS: 10100; 50010; 50101; 50249; 50386; 50455; 50555; 50558; 50687; 50962; 50980; 51489; 52265; 53307; 53310; 54022; 54118; 56462; 56525; 56526; 57092; 62110; 62900; 70005

== ENCOUNTER 2017-03-24 14:51 | Inpatient (IN) | payer OTHER ==
[~2017-03-24] VITALS: Ht 175.3 cm; Wt 66.6 kg
--- NOTE | ~2017-03-24 | EKG ---
[address] [place] [address] ELECTROCARDIOGRAM REPORT Name: ASHWINI CRAMER Room #: 409-P ADM IN M.R.#: [id number] Admission: 03/24/17 Attend Phys: Eduardo Hsu MD Discharge: Date of : 50 Report #: [id number] THIS REPORT FOR: //name// [facility] ED Test Date: 2017-03-24 Test Time: 15:35:40 Pat Name: ASHWINI CRAMER Department: Room: 409 Gender: M Water Manager: MZOOClaudy : 1950 Requested By: Bogdan Dickens Order Number: [id number] MD: Marty Bowens Measurements Intervals [place] Rate: 100 P: DC: QRS: 136 QRSD: 123 T: -21 QT: 512 QTc: 661 Interpretive Statements Afib/flutter and ventricular-paced rhythm No further analysis attempted due to paced rhythm Compared to ECG 01/27/2017 18:38:23 Sinus rhythm no longer present Right bundle-branch block no longer present Myocardial infarct finding no longer present Electronically Signed On 03-25-2017 12:24:09 CARDIOLOGY ASSOCIATE by Marty Bowens [email or web address] <ELECTRONICALLY SIGNED> By: [place] Bowens MD 03/25/17 1224 1535 1535 Marty Bowens MD /EPI
--- NOTE | ~2017-03-24 | S ---
[facility] [place] [address] SURGICAL PATH RPT PROCEDURE Name: TIM CRAMER Room #: 409-P ADM IN M.R.#: [id number] Admission: 03/24/17 Date of : 50 Discharge: Report #: [id number] Path Case #: [id number] PATHOLOGY REPORT COLLECTION DATE: 03/24/2017 RECEIVED DATE: 03/24/2017 SUBMITTING PHYS: Dr. Mahamed Kirk, OTHER PHYS: Dr. Eduardo Russell SPECIMEN(S) RECEIVED: A.Old hernia mesh * * * * * * * * * * * * FINAL DIAGNOSIS: Soft tissue, "old hernia mesh", removal: - Fibroadipose tissue with chronic inflammation and foreign body giant cells with associated foreign material. (SKM:kelly; 03/29/2017) PATHOLOGIST: Nicolle iHnojosa M.D. REPORT ELECTRONICALLY SIGNED BY: Nicolle Hinojosa M.D. DATE/TIME: 03/29/2017 15:03 * * * * * * * * * * * * GROSS PATHOLOGY: Received in formalin labeled "Tim Cramer, old hernia mesh" and consists of synthetic material grossly consistent with mesh measuring 11.5 x 9.0 x 0.1-0.3 cm. There is scant adipose tissue attached to the mesh. Metal Spray Operator sections from the areas of adipose tissue are submitted as A1. (DARRON; 03/28/2017) CLINICAL HISTORY: Incarcerated ventral hernia INITIAL CPT CODE(S): A; 35422 Professional services performed by [facility] at [facility] [address], [place] [address] Technical services performed by [facility] at [address] [place] [address]. [facility] [address] [place] [address] SURGICAL PATH RPT PROCEDURE Name: TIM CRAMER Room #: 409-P [facility] IN M.R.#: [id number] Admission: 03/24/17 Date of : 50 Discharge: Report #: [id number] Path Case #: [id number] [facility] [address] [address] PHONE: [phone] DIRECTOR: Glenn Justin M.D. * * * END OF REPORT * * *
[2017-03-24 14:53] VITALS: BP 135/67
[2017-03-24] MEDS ORDERED: LASIX 20 MG TAB20 MG PO (15:12)
[2017-03-24] MEDS ORDERED: BEVESPI AEROS10.7 GM INH (15:13)
[2017-03-24 15:30] LABS: HEMATOCRIT 34.8 % (42.0-52.0); HEMOGLOBIN 11.9 gm/dL (14.0-18.0); MCH 27.2 pg (26.0-34.0); MCHC 34.1 g/dL (28.0-37.0); MCV 79.6 fL (80.0-100.0); PLATELET COUNT 378 thou/uL (150-400); RBC 4.37 mil/uL (4.50-6.00); RDW 16.7 % (10.5-14.5); WBC 5.6 thou/uL (4.0-11.0)
[2017-03-24 15:38] LABS: CALCIUM 9.9 mg/dL (8.5-10.1); CREATININE 1.2 mg/dL (0.7-1.3); POTASSIUM 5.2 mmol/L (3.5-5.1)
[2017-03-24 15:43] LABS: ALBUMIN 3.4 g/dL (3.4-5.0); DIRECT BILIRUBIN 0.5 mg/dL (<0.1-0.3); TOTAL BILIRUBIN 1.5 mg/dL (<0.1-1.0); TOTAL PROTEIN 7.6 g/dL (6.4-8.2)
[2017-03-24 15:47] LABS: ABSOLUTE NEUTROPHILS 4.8 thou/uL (1.4-8.2); METAMYELOCYTES 2 %
[2017-03-24 15:48] LABS: ANISOCYTOSIS 1+; OVALOCYTES FEW
[2017-03-24 18:02] VITALS: BP 98/54
[2017-03-24 21:00] VITALS: BP 110/67
[2017-03-24 21:30] VITALS: BP 94/67
[2017-03-24 22:00] VITALS: BP 88/62
[2017-03-24 23:00] VITALS: BP 93/61
[2017-03-25] VITALS (11 sets, daily range): BP systolic 85–958; BP diastolic 54–71
[2017-03-25 05:49] LABS: HEMATOCRIT 32.9 % (42.0-52.0); HEMOGLOBIN 10.9 gm/dL (14.0-18.0); MCH 26.8 pg (26.0-34.0); MCHC 33.1 g/dL (28.0-37.0); MCV 81.2 fL (80.0-100.0); RBC 4.05 mil/uL (4.50-6.00); RDW 17.4 % (10.5-14.5); WBC 4.8 thou/uL (4.0-11.0)
[2017-03-25 06:05] LABS: ALBUMIN 2.8 g/dL (3.4-5.0); CALCIUM 8.7 mg/dL (8.5-10.1); CREATININE 1.2 mg/dL (0.7-1.3); POTASSIUM 4.6 mmol/L (3.5-5.1); TOTAL BILIRUBIN 1.3 mg/dL (<0.1-1.0); TOTAL PROTEIN 6.5 g/dL (6.4-8.2)
[2017-03-26 04:00] VITALS: BP 101/66
[2017-03-26 08:00] VITALS: BP 99/74
[2017-03-26 08:27] LABS: URINE BILIRUBIN NEGATIVE (Negative); URINE BLOOD 3+ (Negative); URINE CLARITY SL CLOUDY; URINE COLOR YELLOW; URINE GLUCOSE-RANDOM* NEGATIVE (Negative); URINE KETONES NEGATIVE (Negative); URINE LEUKOCYTES NEGATIVE (Negative); URINE NITRITE NEGATIVE (Negative); URINE PROTEIN (DIPSTICK) 1+ (Negative); URINE SPECIFIC GRAVITY >= 1.030 (1.005-1.035); URINE UROBILINOGEN 0.2 E.U./dl (0.2-1.0)
[2017-03-26 08:34] LABS: BACTERIA 1-9 Few /HPF (None Seen); CASTS None Seen /LPF (None Seen); CRYSTALS None Seen /LPF (None Seen); SQUAMOUS None Seen /LPF (0-3); URINE RBC 3-10 Few /HPF (0-2); URINE WBC 0-5 Rare /HPF (0-5)
[2017-03-26 16:15] VITALS: BP 107/88
[2017-03-26] MEDS ORDERED: BIOFREEZE118 ML TOP (18:12)
[2017-03-26 21:00] VITALS: BP 108/58
[2017-03-27 06:09] VITALS: BP 106/69
[2017-03-27 06:39] LABS: HEMATOCRIT 30.5 % (42.0-52.0); HEMOGLOBIN 10.2 gm/dL (14.0-18.0); MCH 27.1 pg (26.0-34.0); MCHC 33.5 g/dL (28.0-37.0); MCV 80.9 fL (80.0-100.0); RBC 3.77 mil/uL (4.50-6.00); RDW 17.1 % (10.5-14.5); WBC 5.6 thou/uL (4.0-11.0)
[2017-03-27 06:55] LABS: ALBUMIN 2.4 g/dL (3.4-5.0); CALCIUM 8.4 mg/dL (8.5-10.1); CREATININE 0.8 mg/dL (0.7-1.3); POTASSIUM 4.1 mmol/L (3.5-5.1); TOTAL BILIRUBIN 1.4 mg/dL (<0.1-1.0)
[2017-03-27 09:42] VITALS: BP 104/61
[2017-03-27 20:11] VITALS: BP 132/90
[2017-03-28 03:32] VITALS: BP 111/45
[2017-03-28 05:34] LABS: ABSOLUTE NEUTROPHILS 4.3 thou/uL (1.4-8.2); BASOPHILS 0.8 % (0.0-2.0); EOSINOPHILS 2.9 % (0.0-3.0); HEMATOCRIT 32.9 % (42.0-52.0); HEMOGLOBIN 10.8 gm/dL (14.0-18.0); LYMPHOCYTES 7.3 % (24.0-44.0); MCH 26.9 pg (26.0-34.0); MCHC 32.9 g/dL (28.0-37.0); MCV 81.6 fL (80.0-100.0); PLATELET COUNT 350 thou/uL (150-400); RBC 4.03 mil/uL (4.50-6.00); RDW 17.4 % (10.5-14.5); WBC 5.3 thou/uL (4.0-11.0)
[2017-03-28 05:50] LABS: CALCIUM 8.2 mg/dL (8.5-10.1); CREATININE 0.9 mg/dL (0.7-1.3); POTASSIUM 3.8 mmol/L (3.5-5.1)
[2017-03-28 07:35] VITALS: BP 95/62
[2017-03-28 16:23] VITALS: BP 103/67
[2017-03-28 19:40] VITALS: BP 115/65
[2017-03-29 04:20] VITALS: BP 118/80
[2017-03-29 08:00] VITALS: BP 100/63
[2017-03-29 16:01] VITALS: BP 94/62
[2017-03-29 20:00] VITALS: BP 98/51
[2017-03-30 04:14] VITALS: BP 120/64
[2017-03-30 06:11] LABS: HEMATOCRIT 32.7 % (42.0-52.0); MCHC 33.5 g/dL (28.0-37.0); MCV 80.4 fL (80.0-100.0); PLATELET COUNT 335 thou/uL (150-400); RBC 4.06 mil/uL (4.50-6.00); RDW 17.2 % (10.5-14.5); WBC 6.8 thou/uL (4.0-11.0)
[2017-03-30 06:28] LABS: CALCIUM 8.6 mg/dL (8.5-10.1); CREATININE 0.8 mg/dL (0.7-1.3); POTASSIUM 4.1 mmol/L (3.5-5.1)
[2017-03-30 07:51] LABS: ABSOLUTE NEUTROPHILS 5.5 thou/uL (1.4-8.2); ATYPICAL LYMPHS 1 %
[2017-03-30 07:52] LABS: ANISOCYTOSIS 1+; OVALOCYTES FEW
[2017-03-30 08:52] VITALS: BP 97/65
[2017-03-30 20:00] VITALS: BP 98/69
[2017-03-31] VITALS: BP 94/55
[2017-03-31 04:00] VITALS: BP 91/55
[2017-03-31 08:00] VITALS: BP 96/58
[2017-03-31 11:21] VITALS: BP 96/58
[2017-05-09] MEDS ORDERED: POTASSIUM20 PO (11:44)
[2017-05-09] MEDS ORDERED: BEVESPI AEROS10.7 GM INH (11:45)
[2017-05-09] MEDS ORDERED: FLOMAX0.4 MG PO (11:45)
[2017-05-09] MEDS ORDERED: CENTRUM SILVER1 EAC4 PO (11:47)
[2017-05-09] MEDS ORDERED: CO Q-10100 M1 PO (11:47)
[2017-05-09] MEDS ORDERED: PRILOSEC OTC20 MG PO (11:47)
[2017-05-09] MEDS ORDERED: VITAMIN D32000 UNI1 PO (11:47)
[2017-05-09] MEDS ORDERED: AMOXICILLIN875 MG PO (12:08)
[2017-05-09] MEDS ORDERED: ASPIR 8181 MG PO (12:09)
== END 2017-03-31 12:40 | disposition home or self-care (01) | DRG 853 ==
LOC: ER 14:51 → 4N 16:28 → EROBS 16:28 → ICU 21:12 → 4N 03-25 09:30 → ENTRNSPT 03-31 12:30 → EDTRNSPTSTS 03-31 12:35 → 4N 03-31 12:40
PROVIDERS: Family Medicine; Hospitalist; Internal Medicine Endocrinology, Diabetes & Metabolism; Nurse Practitioner; Surgery
PROC: 0WUF0JZ Supplement Abdominal Wall with Synthetic Substitute, Open Approach (ICD-10-PCS; principal; 2017-03-24)
DX: A41.9 Sepsis, unspecified organism (principal); J69.0 Pneumonitis due to inhalation of food and vomit; R65.21 Severe sepsis with septic shock; K43.0 Incisional hernia with obstruction, without gangrene; I50.30 Unspecified diastolic (congestive) heart failure; I48.92 Unspecified atrial flutter; R18.8 Other ascites; K56.7 Ileus, unspecified; I48.91 Unspecified atrial fibrillation; E87.5 Hyperkalemia; N40.0 Benign prostatic hyperplasia without lower urinary tract symptoms; F32.9 Major depressive disorder, single episode, unspecified; I11.0 Hypertensive heart disease with heart failure; I49.5 Sick sinus syndrome; J44.9 Chronic obstructive pulmonary disease, unspecified; Z82.3 Family history of stroke; Z82.49 Family history of ischemic heart disease and other diseases of the circulatory system; Z90.49 Acquired absence of other specified parts of digestive tract; Z85.89 Personal history of malignant neoplasm of other organs and systems; Z95.0 Presence of cardiac pacemaker; Z86.73 Personal history of transient ischemic attack (TIA), and cerebral infarction without residual deficits; Z79.899 Other long term (current) drug therapy
CPT/HCPCS: 10078; 10790; 50010; 50101; 50386; 50953; 51412; 56527; 57092; 62110; 62900; 70005

== ENCOUNTER 2017-04-12 11:49 | Emergency (ER) | payer OTHER ==
[~2017-04-12] VITALS: Ht 175.3 cm; Wt 65.3 kg
--- NOTE | ~2017-04-12 | EKG ---
[place] [address] [facility] [place] [address] ELECTROCARDIOGRAM REPORT Name: ASHWINI CRAMER [facility] [id number] Admission: 04/12/17 Attend Phys: Discharge: 04/12/17 Date of : 50 Report #: [id number] THIS REPORT FOR: //name// [facility] ED Test Date: 2017-04-12 Test Time: 12:18:18 Pat Name: ASHWINI CRAMER Department: Room: Gender: M Press Technician: SHREYA : 1950 Requested By: Jolly Byrd Order Number: [id number] MD: Basilio Clay Measurements Intervals [place] Rate: 92 P: MD: QRS: 155 QRSD: 133 T: -46 QT: 444 QTc: 550 Interpretive Statements Afib/flutter and ventricular-paced rhythm No further analysis attempted due to paced rhythm Compared to ECG 03/24/2017 15:35:40 No significant changes Electronically Signed On 04-12-2017 23:02:07 COLLAR STARCHER by Basilio Clay [email or web address] <ELECTRONICALLY SIGNED> By: Basilio Clay MD 04/12/17 2302 1218 1218 Basilio Clay MD /EPI
[~2017-04-12 11:49] MED LIST changes: +BEVESPI AEROS10.7 GM INH; +BIOFREEZE118 ML TOP
[2017-04-12 13:00] LABS: ABSOLUTE NEUTROPHILS 4.2 thou/uL (1.4-8.2); BASOPHILS 1.3 % (0.0-2.0); EOSINOPHILS 4.6 % (0.0-3.0); HEMATOCRIT 30.9 % (42.0-52.0); HEMOGLOBIN 10.4 gm/dL (14.0-18.0); LYMPHOCYTES 8.5 % (24.0-44.0); MCH 27.1 pg (26.0-34.0); MCHC 33.7 g/dL (28.0-37.0); MCV 80.3 fL (80.0-100.0); MONOCYTES 8.8 % (1.0-8.0); PLATELET COUNT 269 thou/uL (150-400); POLYS 76.8 % (36.0-66.0); RBC 3.84 mil/uL (4.50-6.00); RDW 18.5 % (10.5-14.5); WBC 5.4 thou/uL (4.0-11.0)
[2017-04-12 13:16] LABS: ALBUMIN 2.8 g/dL (3.4-5.0); ANION GAP 5 mmol/L (7-16); CALCIUM 9.2 mg/dL (8.5-10.1); CHLORIDE 97 mmol/L (98-107); CO2 31 mmol/L (21-32); CREATININE 0.8 mg/dL (0.7-1.3); DIRECT BILIRUBIN 0.3 mg/dL (<0.1-0.3); GLUCOSE 95 mg/dL (74-106); LIPASE 99 U/L (73-393); POTASSIUM 3.9 mmol/L (3.5-5.1); SGOT 24 U/L (15-37); SGPT 14 U/L (30-65); SODIUM 133 mmol/L (136-145); TOTAL BILIRUBIN 0.7 mg/dL (<0.1-1.0); TOTAL PROTEIN 6.9 g/dL (6.4-8.2); TROPONIN-I < 0.04 ng/mL (<0.06)
[2017-04-12 13:23] LABS: BUN 19 mg/dL (7-18)
[2017-04-12 13:33] VITALS: BP 107/67
[2017-04-12] MEDS ORDERED: CLEOCIN HCL150 MG PO (13:45)
[2017-05-09] MEDS ORDERED: POTASSIUM20 PO (11:44)
[2017-05-09] MEDS ORDERED: FLOMAX0.4 MG PO (11:45)
[2017-05-09] MEDS ORDERED: BEVESPI AEROS10.7 GM INH (11:45)
[2017-05-09] MEDS ORDERED: PRILOSEC OTC20 MG PO (11:47)
[2017-05-09] MEDS ORDERED: CENTRUM SILVER1 EAC4 PO (11:47)
[2017-05-09] MEDS ORDERED: CO Q-10100 M1 PO (11:47)
[2017-05-09] MEDS ORDERED: VITAMIN D32000 UNI1 PO (11:47)
[2017-05-09] MEDS ORDERED: AMOXICILLIN875 MG PO (12:08)
[2017-05-09] MEDS ORDERED: ASPIR 8181 MG PO (12:09)
== END 2017-04-12 14:11 | disposition home or self-care (01) ==
LOC: ER 11:49
PROVIDERS: Emergency Medicine
DX: K21.9 Gastro-esophageal reflux disease without esophagitis (principal); T17.818A Gastric contents in other parts of respiratory tract causing other injury, initial encounter; I50.9 Heart failure, unspecified; Z85.01 Personal history of malignant neoplasm of esophagus; Z86.73 Personal history of transient ischemic attack (TIA), and cerebral infarction without residual deficits; X58.XXXA Exposure to other specified factors, initial encounter; Y93.89 Activity, other specified; Y92.89 Other specified places as the place of occurrence of the external cause; Y99.8 Other external cause status

== ENCOUNTER → 2017-04-28 | Outpatient (CLI) | payer OTHER ==
[~2017-04-28] MED LIST changes: +AMOXICILLIN875 MG PO; +ASPIR 8181 MG PO; +CENTRUM SILVER1 EAC4 PO; +CLEOCIN HCL150 MG PO; +CO Q-10100 M1 PO; +PRILOSEC OTC20 MG PO; +VITAMIN D32000 UNI1 PO
== END ==
LOC: NUC 07:56
DX: I48.91 Unspecified atrial fibrillation (principal); I50.9 Heart failure, unspecified; J44.9 Chronic obstructive pulmonary disease, unspecified; Z95.0 Presence of cardiac pacemaker

== ENCOUNTER → 2017-05-04 | Outpatient (CLI) | payer OTHER ==
--- NOTE | ~2017-05-04 | 2DMMODE ---
[facility] [place] [address] 2 D/M-MODE ECHOCARDIOGRAM Name: SHOAIBASHWINI BENTON Room #: REG [facility]#: [id number] Admission: 05/04/17 Attend Phys: [place] Bowens MD Discharge: Date of : 50 Date of Service: 05/04/17 1112 Report #: [id number] THIS REPORT FOR: //name// APPROVED REPORT Study performed: 05/04/2017 09:45:51 EXAM: Comprehensive 2D, Doppler, and color-flow Echocardiogram Patient Location: Out-Patient Status: routine BSA: 1.82 HR: 84 bpm BP: 107/72 mmHg Rhythm: Pacemaker Other Information Study Quality: Good Indications Dyspnea Pacemaker Hx CHF, Cancer 2D Dimensions RVDd: 33.77 mm LVEF(%): 56.13 (>50%) IVSd: 12.55 (7-11mm) LVOT Diam: 23.50 (18-24mm) LVDd: 30.51 mm PWd: 10.76 (7-11mm) Ascending Ao: 36.91 (22-36mm) LVDs: 21.89 (25-40mm) Aortic Root: 39.12 mm IVC: 27.00 mm Hawkins's LVEF: 56.13 % Volumes Left Atrial Volume (Systole) Single Plane 4CH: 39.29 mL Single Plane 2CH: 54.29 mL LA ESV Index: 28.00 mL/m2 Aortic Valve AoV Peak Bharathi.: 1.07 m/s AO Peak Gr.: 4.57 mmHg LVOT Max P.92 mmHg LVOT Max V: 0.69 m/s AKIRA Vmax: 2.81 cm2 Mitral Valve [facility] [place] [address] [place] [address] 2 D/M-MODE ECHOCARDIOGRAM Name: ASHWINI CRAMER Room #: REG [facility]#: [id number] Admission: 05/04/17 Attend Phys: [place] Bowens MD Discharge: Date of : 50 Date of Service: 05/04/17 1112 Report #: [id number] MV Decel. Time: 189.28 ms MV E Max Bharathi.: 1.93 m/s IVRT: 78.43 ms Pulmonary Valve PV Peak Bharathi.: 0.60 m/s PV Peak Gr.: 1.44 mmHg Tricuspid Valve TR Peak Bharathi.: 2.75 m/s RAP Estimate: 15.00 mmHg TR Peak Gr.: 30.33 mmHg PA Pressure: 45.00 mmHg Left Ventricle The left ventricle is normal size. Mild concentric left ventricular hypertrophy. The left ventricular systolic function is normal. LVEF is 55-60%. This study is not technically sufficient to allow evaluation of the LV diastolic function. Right Ventricle The right ventricle is normal size. Right ventricle is hypokinetic. Pacemaker lead is present in the right ventricle. Atria The left atrium is mildly dilated. The right atrium size is normal. Aortic Valve Aortic valve is mildly thickened. Mild to moderate aortic regurgitation. There is no aortic valvular stenosis. Mitral Valve The mitral valve is normal in structure. Mild mitral annular calcification. Mild to moderate mitral regurgitation. No evidence of mitral valve stenosis. Tricuspid Valve The tricuspid valve is normal in structure. Mild to moderate tricuspid regurgitation. Estimated PAP 45 mmHg. Pulmonic Valve The pulmonary valve is normal in structure. Trace pulmonic regurgitation. Great Vessels Aortic root is dilated. The ascending aorta is borderline dilated. IVC is dilated and collapses <50% with [facility] [address] [place] [address] 2 D/M-MODE ECHOCARDIOGRAM Name: ASHWINI CRAMER Room #: REG [facility]#: [id number] Admission: 05/04/17 Attend Phys: Marty Bowens MD Discharge: Date of : 50 Date of Service: 05/04/17 1112 Report #: [id number] inspiration. Pericardium There is no pericardial effusion. Left pleural effusion noted. <Conclusion> The left ventricle is normal size. Mild concentric left ventricular hypertrophy. The left ventricular systolic function is normal. The right ventricle is normal size. The left atrium is mildly dilated. Pacemaker lead is present in the right ventricle. Aortic valve is mildly thickened. Mild to moderate aortic regurgitation. The mitral valve is normal in structure. Mild mitral annular calcification. Mild to moderate mitral regurgitation. Mild to moderate tricuspid regurgitation. Estimated PAP 45 mmHg. <ELECTRONICALLY SIGNED> By: Marty Bowens MD 05/04/171111 11 11 Marty Bowens MD /INF
== END ==
LOC: CV 06:48
DX: I08.3 Combined rheumatic disorders of mitral, aortic and tricuspid valves (principal); J90 Pleural effusion, not elsewhere classified; J98.11 Atelectasis; R91.8 Other nonspecific abnormal finding of lung field; K55.059 Acute (reversible) ischemia of intestine, part and extent unspecified; R18.8 Other ascites; K76.6 Portal hypertension; I34.8 Other nonrheumatic mitral valve disorders

== ENCOUNTER → 2017-05-05 | Outpatient (CLI) | payer OTHER ==
[2017-05-05 13:17] LABS: CREATININE 0.8 mg/dL (0.7-1.3)
== END ==
LOC: LABMALL 12:38
PROVIDERS: Internal Medicine Pulmonary Disease
DX: R06.02 Shortness of breath (principal); C15.9 Malignant neoplasm of esophagus, unspecified; R60.9 Edema, unspecified

== ENCOUNTER → 2017-05-12 | Outpatient (CLI) | payer OTHER ==
[~2017-05-12] VITALS: Ht 172.7 cm; Wt 65.8 kg
--- NOTE | ~2017-05-12 | S ---
[facility] [place] [address] SURGICAL PATH RPT PROCEDURE Name: TIM CRAMER Room #: REG [facility] M.Deshawn.#: [id number] Admission: 05/12/17 Date of : 50 Discharge: Report #: [id number] Path Case #: [id number] PATHOLOGY REPORT COLLECTION DATE: 05/12/2017 RECEIVED DATE: 05/12/2017 SUBMITTING PHYS: Dr. Héctor Delgado OTHER PHYS: Dr. Akash Sherman SPECIMEN(S) RECEIVED: A.Esophagus rule out barretts * * * * * * * * * * * * FINAL DIAGNOSIS: "Esophagus rule out Quispe's", biopsy: - Gastric cardiac-type mucosa with reactive changes, mild acute and chronic inflammation / focal active inflammation and focal intestinal metaplasia, compatible with Quispe's mucosa; no dysplasia seen. (CLW:kelly; 05/15/2017) PATHOLOGIST: Chata Valadez M.D. REPORT ELECTRONICALLY SIGNED BY: Chata Valadez M.D. DATE/TIME: 05/15/2017 21:17 * * * * * * * * * * * * GROSS PATHOLOGY: The specimen is received in formalin, labeled "Tim Cramer and esophagus rule out Quispe's", are three ornelas-cee soft tissue ranging from 0.2 cm up to 0.4 cm in greatest dimension and measuring 0.4 x 0.4 x 0.1 cm in aggregate, entirely submitted in A1. ([facility]; 05/12/2017) CLINICAL HISTORY: History esophageal cancer, dysphagia, rule out Quispe's INITIAL CPT CODE(S): A; 71727 Professional services performed by [facility] at [facility] [address], [place] [address] Technical services performed by [facility] at [address] [place] [address], [address] [address]. [facility] [address] [place] [address] SURGICAL PATH RPT PROCEDURE Name: CRAMERELSATIM BENTON Room #: REG TYSON Toro#: [id number] Admission: 05/12/17 Date of : 50 Discharge: Report #: [id number] Path Case #: [id number] [facility] [address] [address] PHONE: [phone] DIRECTOR: Glenn Justin M.D. * * * END OF REPORT * * *
--- NOTE | ~2017-05-12 | P ---
[facility] [place] [address] PROCEDURE REPORT Name: ASHWINI CRAMER [facility] [id number] Admission: 05/12/17 Attend Phys: Héctor Kline Discharge: Date of : 50 Report #: [id number] THIS REPORT FOR: //name// CC: Akash Rubin MD DATE OF SERVICE: 05/12/2017 PROCEDURE PERFORMED: Upper endoscopy with biopsies and esophageal dilation. HISTORY OF PRESENT ILLNESS: The patient is a 66-year-old male with a previous history of esophageal cancer in 2007, status post resection with gastric pull up. He has been having intermittent nausea and vomiting, dysphagia as well as possible aspiration pneumonia. The patient underwent a CT scan of the chest on 05/05/2017, which showed previous changes of esophagectomy and gastric pull-up with a large amount of food noted within the remaining stomach. Air bronchograms are noted. There was also large amount of ascites in the upper abdomen. Plan is for EGD. PROCEDURE: The risks and benefits of the procedure were explained to the patient, those risks including, but not limited to bleeding, perforation, and the risk of sedation. He understood these risks and gave informed consent. Sedation was given using propofol per anesthesia. Next, using a standard PSS Systemsn upper endoscope, the scope was placed in the patient's mouth and advanced under direct vision through the esophagus, stomach and into the duodenum. The larynx was normal in appearance. The remaining esophagus was very short, approximately 15 cm. A surgical anastomosis was noted. This was patent. I was able to advance the scope through this area without difficulty, although it was mildly narrowed. 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 Biopsies were obtained. There was residual food noted within the stomach. The pylorus was normal and patent. The duodenal bulb, first and second portion were all normal. The scope was then brought back up into the patient's stomach and a guidewire was inserted through the scope, leaving the guidewire in place as the scope was then withdrawn. I then attempted a Savary dilation of the surgical anastomosis with a 51-Eritrean Savary, but I was meeting resistance and because of this, I decided not to use a Savary and instead, this was withdrawn. The scope was reintroduced into the patient's esophagus and a balloon dilation was then performed of the anastomosis with a max diameter of 18. This was held in place for one minute and then deflated. No evidence of mucosal tear was noted after dilation. At this point, the scope was then withdrawn and the procedure terminated. The patient tolerated the procedure well. IMPRESSION: [facility] [address] [place] [address] PROCEDURE REPORT Name: SHOAIBASHWINI BENTON Room #: REG CLE[facility] Toro#: [id number] Admission: 05/12/17 Attend Phys: Héctor Kline Discharge: Date of : 50 Report #: [id number] 1. Surgical anastomosis in the upper esophagus with gastric pull-up noted. 2. Food residual small amount within the remaining stomach. 3. Possible short segment Quispe's, biopsies obtained. RECOMMENDATIONS: 1. Observe the patient post dilation. 2. Await biopsy results. 3. We discussed adding Reglan for promotility effect. 4. I explained the potential side effects, he understands and agrees with this plan. Thank you for allowing me to participate in his care. <ELECTRONICALLY SIGNED> By: Héctor Delgado MD 05/12/17 1622 1032 1124 Héctor Delgado MD /nt
== END | disposition home or self-care (01) ==
LOC: GI 08:27
DX: K22.2 Esophageal obstruction (principal); K31.89 Other diseases of stomach and duodenum; I50.9 Heart failure, unspecified; I48.92 Unspecified atrial flutter; J43.8 Other emphysema; K21.9 Gastro-esophageal reflux disease without esophagitis; R18.8 Other ascites; Z95.0 Presence of cardiac pacemaker; Z85.01 Personal history of malignant neoplasm of esophagus; Z87.891 Personal history of nicotine dependence; Z90.49 Acquired absence of other specified parts of digestive tract; Z98.890 Other specified postprocedural states
CPT/HCPCS: 62110

== ENCOUNTER → 2017-05-18 | Outpatient (CLI) | payer OTHER ==
--- NOTE | ~2017-05-18 | CNG ---
[facility] [address] CYTO-NONGYN REPORT PROCEDURE Name: TIM CRAMER Room #: REG [facility] Husam.Deshawn.#: [id number] Admission: 05/18/17 Date of : 50 Discharge: Report #: [id number] Path Case #: [id number] CYTOPATHOLOGY REPORT COLLECTION DATE: 05/18/2017 RECEIVED DATE: 05/18/2017 SUBMITTING PHYS: Dr. Héctor Delgado OTHER PHYS: Dr. Akash Sherman CLINICAL HISTORY: Ascites SPECIMEN(S) RECEIVED: A.Abdominal fluid * * * * * * * * * * * * FINAL DIAGNOSIS: A. Abdominal fluid: - No malignant epithelial cells identified. Mesothelial cells are present along with numerous lymphocytes and macrophages. PATHOLOGIST: Dana Paz M.D. REPORT ELECTRONICALLY SIGNED BY: Dana Paz M.D. DATE/TIME: 05/19/2017 14:28 * * * * * * * * * * * * GROSS PATHOLOGY: A. Abdominal fluid: The specimen is submitted unfixed, labeled "Tim Cramer". Received by the Cytology Department is 30 mL of cloudy yellow fluid. One ThinPrep slide and a formalin fixed cell block were prepared. (lg 05.18.2017) COMPUTER EQUIPMENT REPAIRER(S): PRASANTH Morrison(ASCP) INITIAL CPT CODE(S): A; 06996, 36783 Professional services performed by [facility] at [facility] [address], [place] [address] Technical services performed by [facility] at [address] [place] [address]., [address], [place] [address]. [facility] [address] [place] [address], [address] [place] [address] PHONE: [phone] [facility] [address] [place] [address] CYTO-NONGYN REPORT PROCEDURE Name: TIM CRAMER Room #: REG CLI Too.#: [id number] Admission: 05/18/17 Date of : 50 Discharge: Report #: [id number] Path Case #: [id number] DIRECTOR: Glenn Justin M.D. * * * END OF REPORT * * *
[2017-05-18 14:15] LABS: CLARITY SLIGHTLY CLOUDY; COLOR YELLOW; SOURCE ABDOMINAL; TOTAL VOLUME 61 mL
[2017-05-18 14:16] LABS: SOURCE ABDOMINAL
[2017-05-18 14:26] LABS: BF NUCLEATED CELLS 271; BF RBC 950
[2017-05-18 15:51] LABS: BF MACROPHAGE 51; BF NEUTROPHILS 13
[2017-05-19 12:07] LABS: BODY FLUID ALBUMIN 2.8 g/dL (()); BODY FLUID AMYLASE 29 U/L (()); BODY FLUID GLUCOSE 92 mg/dL (()); BODY FLUID LDH 130 IU/L (())
== END | disposition home or self-care (01) ==
LOC: ULTRA 13:01
PROVIDERS: Specialist
DX: R18.8 Other ascites (principal)

== ENCOUNTER → 2017-06-22 | Outpatient (CLI) | payer OTHER ==
[~2017-06-22] VITALS: Ht 175.3 cm; Wt 68.0 kg
--- NOTE | ~2017-06-22 | S ---
[facility] [place] [address] SURGICAL PATH RPT PROCEDURE Name: TIM CRAMER Room #: [facility]..#: [id number] Admission: 06/22/17 Date of : 50 Discharge: Report #: [id number] Path Case #: [id number] PATHOLOGY REPORT COLLECTION DATE: 06/22/2017 RECEIVED DATE: 06/22/2017 SUBMITTING PHYS: Dr. Héctor Delgado OTHER PHYS: Dr. Ciro Hale SPECIMEN(S) RECEIVED: A.Liver, needle biopsy * * * * * * * * * * * * FINAL DIAGNOSIS: "Liver, needle biopsy", transjugular liver biopsy: - Liver tissue with focal mild zone 3 atrophy and minimal lobular chronic inflammation. - Focal mild periportal and perisinusoidal fibrosis. (CLW:kelly; 06/23/2017) COMMENT: Sections show liver tissue with occasional portal tracts present. There is minimal lobular chronic inflammatory cell infiltrates. The portal tracts are without significant inflammation. Focal zone 3 atrophy is noted. No acute inflammation, eosinophils, steatosis, granulomas or neoplastic process is identified. There is no sclerosis of the portal veins, no nodular regenerative changes or hyperplasia and no cirrhosis. Properly controlled special stains are performed. Block A1: Trichrome - Stains focal mild periportal and perisinusoidal fibrosis Reticulin - Foci of hepatocyte collapse and cord thickening PAS - Stains hepatic glycogen PASD - Negative for globules in zone 1 Iron - Focal punctate sinusoidal iron Of note, this is a small portion of the liver and may not be international sales representative. Sampling bias cannot be excluded. Correlation with clinical history, radiographic findings, and additional laboratory data is required. The case is co-reviewed with Dr. Dana Paz. (CLW:kelly; 06/23/2017) PATHOLOGIST: Chata Valadez M.D. REPORT ELECTRONICALLY SIGNED BY: Chata Valadez M.D. DATE/TIME: 06/23/2017 15:05 [facility] [place] [address] SURGICAL PATH RPT PROCEDURE Name: TIM CRAMER RAY Room #: [facility].#: [id number] Admission: 06/22/17 Date of : 50 Discharge: Report #: [id number] Path Case #: [id number] * * * * * * * * * * * * GROSS PATHOLOGY: Received in formalin labeled "Tim Cramer, liver biopsy" are 2 cylindrical red-brown soft tissue cores which measure 1.4 x 0.1 cm each. The specimen is submitted in cassette A1. [place] CLINICAL HISTORY: Transjugular liver biopsy for diagnosis. No other history provided. INITIAL CPT CODE(S): A; 77975, 48699, 89829, 65112, 70669, 85125 Professional services performed by [facility] at [facility] , [place] [address] Technical services performed by [facility] at [address] [place] [address], [address], [place] [address]. [facility] [address] [place] [address] PHONE: [phone] DIRECTOR: Glenn Justin M.D. * * * END OF REPORT * * *
[2017-06-22 09:09] VITALS: BP 107/77
[2017-06-22 09:32] LABS: HEMATOCRIT 31.8 % (42.0-52.0); HEMOGLOBIN 10.5 gm/dL (14.0-18.0); MCH 26.9 pg (26.0-34.0); MCHC 33.1 g/dL (28.0-37.0); MCV 81.2 fL (80.0-100.0); RBC 3.92 mil/uL (4.50-6.00); RDW 18.1 % (10.5-14.5); WBC 3.9 thou/uL (4.0-11.0)
[2017-06-22 09:42] LABS: CALCIUM 9.3 mg/dL (8.5-10.1); POTASSIUM 4.2 mmol/L (3.5-5.1)
[2017-06-22 09:45] LABS: APTT 29.2 Seconds (24.5-32.8); INR 1.2; PROTIME 12.1 Seconds (9.3-11.4)
== END ==
LOC: SPEC 07:54
PROVIDERS: Radiology Diagnostic Radiology
DX: K75.89 Other specified inflammatory liver diseases (principal); R18.8 Other ascites; K74.0 Hepatic fibrosis; J44.9 Chronic obstructive pulmonary disease, unspecified; I50.9 Heart failure, unspecified; K21.9 Gastro-esophageal reflux disease without esophagitis; I48.92 Unspecified atrial flutter; Z98.890 Other specified postprocedural states; Z82.49 Family history of ischemic heart disease and other diseases of the circulatory system; Z95.0 Presence of cardiac pacemaker; Z79.01 Long term (current) use of anticoagulants; Z79.899 Other long term (current) drug therapy; Z79.82 Long term (current) use of aspirin

== ENCOUNTER → 2018-01-03 | Outpatient (CLI) | payer OTHER | LOC: RAD 14:06 | DX: I51.7 Cardiomegaly (principal); J44.9 Chronic obstructive pulmonary disease, unspecified; J90 Pleural effusion, not elsewhere classified; I50.9 Heart failure, unspecified ==

== ENCOUNTER → 2018-01-29 | Outpatient (CLI) | payer OTHER | LOC: RAD 10:31 | DX: I51.7 Cardiomegaly (principal); J98.11 Atelectasis; J90 Pleural effusion, not elsewhere classified ==

== ENCOUNTER → 2018-02-07 | Outpatient (CLI) | payer OTHER ==
[~2018-02-07] MED LIST changes: +ALDACTONE50 MG PO; +FLECAINIDE ACE100 MG PO; +FLECAINIDE ACET50 M1 PO; +LASIX 40 MG TAB40 M2 PO
== END ==
LOC: CAT 10:04
DX: J90 Pleural effusion, not elsewhere classified (principal); J98.11 Atelectasis; I25.10 Atherosclerotic heart disease of native coronary artery without angina pectoris

== ENCOUNTER 2018-02-10 17:19 | Inpatient (IN) | payer OTHER ==
[~2018-02-10] VITALS: Ht 175.3 cm; Wt 63.5 kg
--- NOTE | ~2018-02-10 | HC ---
[facility] [place] [address] [address] CONSULTATION Name: ASHWINI CRAMER Room #: 201-P ADM IN .R.#: [id number] Admission: 02/10/18 Attend Phys: Eduardo Hsu MD Discharge: Date of : 50 Report #: [id number] THIS REPORT FOR: //name// CC: Akash Hsu DATE OF SERVICE: 02/12/2018 REQUESTING PHYSICIAN: Dr. Basilio Clay. ATTENDING PHYSICIAN: Eduardo Hsu MD REASON FOR CONSULTATION: Aortic valve vegetation. HISTORY OF PRESENT ILLNESS: A 67-year-old white man is readmitted through the Emergency Room with a history of not feeling well and having a possible increasing shortness of breath, some subjective fevers. The patient also relates having some confusion and cough. Cough has been going on for quite some time. The patient apparently has urinary retention as well and he had a Silveira catheter, but on physical exam, he does have a distended bladder and bladder scan reveals a urine of 600-700 mL. Reason for consultation today is the finding by echocardiogram of aortic valve vegetation, but the patient having no clear-cut symptoms to suggest endocarditis and blood culture has remained negative so far. PAST MEDICAL HISTORY: Positive for esophageal cancer and gastric pull-up in 2007, followed by chemotherapy and radiation therapy. The patient used to have significant reflux that has gotten better after proton pump inhibitor prescription. The patient has right-sided heart failure, pulmonary hypertension, COPD. He has required placement of a dual chamber pacemaker in 09/2016. Pleural effusion. Atrial flutter. Previous jejunostomy feeding tube during cancer treatment. Previous atrial tachycardia, repair of a hernia, gastroesophageal reflux disease, previous cardiac ablation. DRUG ALLERGIES: None listed. MEDICATIONS: The patient is currently on treatment with spironolactone, levothyroxine, enoxaparin, Solu-Medrol 40 mg IV 4 times daily, Rocephin 1 gram IV daily, Atrovent and albuterol inhalation treatments, tamsulosin, aspirin, cholecalciferol, multivitamins, pantoprazole, melatonin, polyethylene glycol, ondansetron p.r.n. SOCIAL HISTORY: See H and P, old records. FAMILY HISTORY: See H and P, old records. [facility] [place] [place] [address] [place] [address] CONSULTATION Name: A[place]WINI CRAMER [place] Room #: 201[facility] IN .R.#: [id number] Admission: 02/10/18 Attend Phys: Eduardo Hsu MD Discharge: Date of : 50 Report #: [id number] REVIEW OF SYSTEMS: As above. PHYSICAL EXAMINATION: GENERAL: Chronically ill-appearing man. VITAL SIGNS: Temperature maximum of 99.7 on admission. Blood pressure on the low side 85/40, today's 119/55; pulse 103; respirations 18; O2 saturation is 99% on 2 liters oxygen nasal cannula. HEENMT: Pupils reactive. Mouth: Moist mucous membrane. NECK: Supple. Left-sided infraclavicular pacemaker. LUNGS: Basilar crackles both bases, more prominent on the right posteriorly. HEART: S1, S2. No gallops. ABDOMEN: Distended urinary bladder despite Silveira catheter. GENITAL AND RECTAL: Deferred. EXTREMITIES: No clubbing, cyanosis. NEUROLOGIC: Grossly within normal limits. LABORATORY DATA: Sodium 124, potassium 4.7, BUN 37, creatinine 1.3, glucose 164, total bilirubin 1.7, albumin on admission 3.5 g/dL. NT-proBNP 2213. Protime 15.6, INR 1.5. Urine drug screen positive for opiates. WBC on admission 10,100; hemoglobin 10.7 g/dL; the MCV and MCH low compatible with iron deficiency anemia. Repeat CBC today revealed a WBC of 6700; hemoglobin 10.1 g/dL; platelets 208,000. T3 51, it is low. TSH 17.8 elevated. Ferritin 39. Urinalysis revealed trace blood, otherwise negative. The ABGs reveal pH 7.48, pCO2 of 28, pO2 57, bicarbonate 21.2, lactate 1.25 on room air. This set of gases revealing significant hypoxemia, some metabolic acidosis and respiratory alkalosis compensated. MICROBIOLOGY DATA: Nasopharyngeal smear negative for influenza antigen A and B. Blood cultures are negative so far almost 48 hours post drawing blood. RADIOLOGY EVALUATION: Chest x-ray revealed cardiomegaly, increased lower lobe atelectasis, infiltrate and possible right pleural effusion. Ultrasound venous circulation revealed no evidence for femoropopliteal deep venous thrombosis on left lower extremity. Thyroid ultrasound, normal size thyroid gland. V/Q scan pending. Review of CT scan of the chest in 02/2018 revealed gastric-pull into the chest with a large amount of food content. Echocardiogram revealed depressed left ventricular systolic function, discordant septal motion from right ventricular pacing, left ventricular ejection fraction 45%-50%, a small aortic valve vegetation previously seen in 2017, mild aortic regurgitation, mitral annular calcification, no pericardial effusion. ASSESSMENT: 1. Aortic valve lesion - vegetations, doubt endocarditis. 2. Respiratory failure - chronic obstructive pulmonary disease, possible recurrent aspiration in a patient with history of esophageal cancer, gastric [facility] [place] [place] [address] [place] [address] CONSULTATION Name: ASHWINI CRAMER Room #: 201-P ADM IN [facility]#: [id number] Admission: 02/10/18 Attend Phys: Eduardo Hsu MD Discharge: Date of : 50 Report #: [id number] pull-up. 3. Cardiac arrhythmias, status post permanent pacemaker. 4. Urinary retention -- replace Silveira catheter. SUGGESTIONS: Recommend obtaining ESR, CRP, possibly they will be elevated, but I doubt related to endocarditis. Possible may have to entertain possibility of recurrent aspiration. Consequently, possibly meropenem may be a better choice of antibiotic for this patient. Dr. Basilio Clay, thank you for requesting my suggestions in the care of your patient. <ELECTRONICALLY SIGNED> By: Jeremy Clay MD 02/13/18 0958 [id number] 0503 Jeremy Clay MD /nt
--- NOTE | ~2018-02-10 | EKG ---
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1950 Requested By: Eduardo Hsu Order Number: [id number] MD: Measurements Intervals [place] Rate: 96 P: 0 HI: 336 QRS: -103 QRSD: 198 T: -52 QT: 484 QTc: 612 Interpretive Statements Sinus rhythm Prolonged HI interval Right bundle branch block Repol abnrm, global ischemia, diffuse leads Compared to ECG 02/10/2018 17:52:52 First degree AV block now present Right bundle-branch block now present Early repolarization now present Possible ischemia now present Ventricular-paced complex(es) or rhythm no longer present [email or web address] By: [id number] Epiphany Epiphany, /KEE
--- NOTE | ~2018-02-10 | HC ---
[facility] [place] [address] [place] [address] CONSULTATION Name: ASHWINI CRAMER [place] Room #: 201-P [facility] IN M.R.#: [id number] Admission: 02/10/18 Attend Phys: Eduardo Hsu MD Discharge: Date of : 50 Report #: [id number] THIS REPORT FOR: //name// CC: Akash Hsu DATE OF SERVICE: 02/11/2018 PRIMARY CARE PHYSICIAN: Dr. Akash Sherman. REFERRAL PHYSICIAN: Dr. Eduardo Hsu. REASON FOR REFERRAL: Dyspnea. HISTORY OF PRESENT ILLNESS: The patient is a 67-year-old white male who presents to the Emergency Room with progressive dyspnea. He complains of chills, fever and rhinitis. A pulmonary consultation was requested. The patient has a complicated medical history. He was diagnosed with esophageal cancer in 2007, undergone esophagectomy followed by chemo and radiation therapy. The patient had some complications with associated radiation. He has also had chronic pleural effusion on the right, undergoing multiple thoracenteses in the past. He now has chronic small pleural peel on the right side. For the past year or so, the patient has had episodic problems with dyspnea. He has also had trouble with nutrition in the past, necessitating nutritional supplements. More recently, he has noticed increasing dyspnea, cough, weight loss and generalized weakness. The patient also states that he was told that he had liver biopsy in the past which was nondiagnostic. He was seen for ascites and possible cirrhosis. He was seen in the pulmonary office early part of January for progressive dyspnea and cough. The patient had complained at that time of respiratory symptoms related to pleural effusion. The patient has undergone multiple thoracenteses in the past, but chest x-ray did not show any evidence of clinically significant thoracentesis for thoracentesis. The patient did undergo CT chest recently on 02/07/2018. The CT shows chronic mild bilateral pleural effusion, pocket of pleural fluid collection measuring 4 x 6 x 7 cm in diameter in the posterior mediastinal region. Today, the patient continues to complain of generally not feeling well, fatigue, poor appetite and progressive weight loss. Otherwise, denies any chest pain or hemoptysis. He is normally followed by Dr. Héctor Delgado for his esophageal cancer. [address] [address] CONSULTATION Name: ASHWINI CRAMER [place] Room #: 201-P [facility] IN ..#: [id number] Admission: 02/10/18 Attend Phys: Eduardo Hsu MD Discharge: Date of : 50 Report #: [id number] PAST MEDICAL HISTORY: As mentioned above, esophageal cancer as outlined above, history of atrial flutter, complete heart block, status post pacemaker placement, chronic diastolic dysfunction, echo from 05/2016 showed ejection fraction of 65%, repair of incarcerated ventral hernia, which was felt to be causing GI symptoms in 03/2017, history of TIA. PAST SURGICAL HISTORY: As mentioned above including hiatal hernia repair, prior history of jejunostomy tube placement, status post removal along with ventral hernia repair. ALLERGIES: None to medications. HOME MEDICATIONS: Pepto-Bismol, Lasix, K-Dur, Flomax, Bevespi, vitamin supplements, Prilosec, amoxicillin, aspirin. FAMILY HISTORY: Notable for CVA in the mother who . Father had brain aneurysm who . SOCIAL HISTORY: The patient has smoked, but quit in 1979. Denies any alcohol use. REVIEW OF SYSTEMS: As mentioned above, otherwise 10-point system review negative. PHYSICAL EXAMINATION: GENERAL: He is awake, alert, in mild distress. VITAL SIGNS: Temperature is 97.8 degrees Fahrenheit, pulse is 100, respiratory rate is 20, blood pressure is 90/58 mmHg, saturation 100%. HEENT: Normocephalic, atraumatic. NECK: Supple, without any lymphadenopathy or thyromegaly. CHEST: Breath sounds are fair, decreased in the bases. Few scattered crackles. No wheezes. CARDIOVASCULAR: Normal S1, S2. No murmurs or gallop. There is no JVD. There is no carotid bruit. Pulses are 2+/4+ bilaterally. ABDOMEN: Soft, nontender. GENITOURINARY: Deferred. RECTAL: Deferred. EXTREMITIES: There is no edema, cyanosis or clubbing. MUSCULOSKELETAL: Notable for moderate cachexia. LABORATORY DATA: Chest x-ray shows chronic small bilateral pleural effusion, volume loss, CT chest as mentioned above. Influenza A and B swab is negative. BNP is 2200. Urine drug screen was positive for opiates. Thyroid ultrasound was grossly unremarkable. EKG shows ventricular paced complexes. No acute changes. TSH is 17.8. Electrolytes: Sodium 130, potassium 4.7, chloride 93, [address] [address] CONSULTATION Name: CRAMER,ASHWINI [place] Room #: 201-P [facility] IN M.R.#: [id number] Admission: 02/10/18 Attend Phys: Eduardo Hsu MD Discharge: Date of : 50 Report #: [id number] CO2 is 26, creatinine is 1.3. Liver enzymes are grossly unremarkable. WBC 12,200, hemoglobin 9.8, platelets are normal. No bandemia. Albumin 3.5. Arterial blood gas revealed pH 7.48, pCO2 of 28, pO2 of 57 on room air. IMPRESSION: 1. Acute hypoxic respiratory failure in this 67-year-old white male with multitude of constitutional symptoms, complex medical history including esophageal cancer, undergoing surgery and radiation. He has also had complaints of few month history of progressive weakness, malnutrition. He has restrictive ventilatory defect due to his past surgery with a baseline FEV1 of 1.5 liters or 50% predicted, FVC measured 1.8 liter 48% predicted. Etiology may be related to viral syndrome, but cannot rule out other processes such as lower respiratory tract infection. Pulmonary embolus is felt to be less likely, but needs to be ruled out. 2. Probable viral upper respiratory tract infection. 3. Recent onset of weight loss, mild weakness, progressive dyspnea. He has past history of ascites, questionable history of cirrhosis. As mentioned above, he has history of esophageal cancer, undergoing esophagectomy, radiation chemotherapy back in 2007. We will need to rule out recurrence of esophageal cancer. GI consultation is recommended. 4. Ill-defined fluid pocket collection in the posterior mediastinum. This will need to be further investigated. Review of his previous CT chest from 05/2017 shows similar areas of fluid pocket collection in the same area. For now, EGD may be helpful. I do not think this represents an abscess, but rather chronic pocket of fluid collection from his past surgery, etc. He is also known to have history of loculated pleural effusion, which may not necessarily be infected. 5. History of esophageal cancer, esophagectomy 2007, undergoing chemo and radiation therapy. Postoperatively, the patient appeared to have complications associated pleural effusion with multiple thoracenteses in the past. Review of the records suggests that some of the pleural fluid appears to be loculated as mentioned above. He has also had trouble with nutrition following surgery. As mentioned above, this will need to be reevaluated with GI consultation. 6. History of ascites, etiology of this is unclear. The patient also describes a history of liver biopsy. Again, GI input will be helpful. 7. Presumed chronic obstructive lung disease. The patient has smoked in the past, but quit many years ago. His spirometry does not show any evidence of airflow obstruction. Bronchodilators have helped in the past. We will continue. 8. Acute kidney injury, probably related to poor oral intake, volume depletion. RECOMMENDATION: Agree with current treatment plans. I think it is reasonable to proceed with V/Q scan given his renal impairment. A CT chest angiogram will be at risk for worsening renal function at this time. We will also check leg Doppler ultrasound. Repeat echocardiogram given his history of diastolic dysfunction. A GI consultation regarding his history of esophageal CA, weight loss. In terms of his pocket of fluid collection seen in the mediastinum, [address] [address] CONSULTATION Name: ASHWINI CRAMER [place] Room #: 201-P [facility] IN M.R.#: [id number] Admission: 02/10/18 Attend Phys: Eduardo Hsu MD Discharge: Date of : 50 Report #: [id number] review of the old x-ray may be helpful. This may be chronic, stable fluid collection. At this time, I do not think this is an empyema though will need to be followed closely. For now, would also recommend nutritional support given his weight loss and weakness. DVT and GI prophylaxis recommended. Thank you for this consultation. <ELECTRONICALLY SIGNED> By: Carlos Wyatt MD 02/12/182011 1453 0209 Carlos Wyatt MD /nt
--- NOTE | ~2018-02-10 | HC ---
[facility] [place] [place] [address] CONSULTATION Name: ASHWINI CRAMER Room #: 201-P ADM IN .R.#: [id number] Admission: 02/10/18 Attend Phys: Eduardo Hsu MD Discharge: Date of : 50 Report #: [id number] THIS REPORT FOR: //name// CC: Akash Hsu DATE OF SERVICE: 02/11/2018 HISTORY OF PRESENT ILLNESS: The patient is a 67-year-old gentleman with a history of heart block with pacemaker implantation as well as prior atrial flutter ablation. He has a history of severe COPD with an FEV1 of 47% of predicted. Now, presents with a 1-week history of progressive shortness of breath. He has had intermittent cough productive of what he describes as purulent sputum. He has had a significant change in his exercise ability and stamina, especially over the past week. He has had low-grade fevers. He denies chest heaviness, pressure or ischemic type symptoms. He actually had a normal pharmacologic stress study in our office this year. Upon presentation, he was ventricularly paced. After admission, he was noted to have a very wide complex tachycardia at a rate of 96 beats per minute. This was an asymptomatic rhythm change. QRS state duration was in upwards of 200 milliseconds. Electrolytes are normal. He denies symptoms suggestive of recurrent atrial flutter. He reports that his blood pressures typically are in the 80-90 range, which is completely normal for him. ALLERGIES: There are no known drug allergies. MEDICATIONS: Include aspirin, Lasix 40 mg twice a day, levothyroxine 50 mcg daily, spironolactone 50 mg daily, flecainide 100 mg twice a day, vitamin D, Flomax 0.4 mg daily. PAST MEDICAL HISTORY: Medical records have been reviewed and include a history of atrial flutter and atrial tachycardia ablation, both right and left side, St. Reginaldo pacemaker implantation in 05/2016, diastolic heart failure in 05/2016, esophageal cancer with esophagectomy and radiation therapy, incarcerated ventral hernia surgery, COPD, history of syncope in the setting of heart block prior to pacemaker placement, jejunostomy feeding tube placement in 2007. SOCIAL HISTORY: He quit smoking in 1979. He is . FAMILY HISTORY: Notable for father with an abdominal aortic aneurysm. REVIEW OF SYSTEMS: All systems negative except as that noted above. PHYSICAL EXAMINATION: GENERAL: A pleasant gentleman in no distress. VITAL SIGNS: Blood pressure is 88/85, temperature is 97.8 degrees. He had a [facility] [address] [place] [address] CONSULTATION Name: ASHWINI CRAMER Room #: [facility].#: [id number] Admission: 02/10/18 Attend Phys: Eduardo Hsu MD Discharge: Date of : 50 Report #: [id number] low-grade temperature yesterday at 99.8, blood pressure is 88/65, 5 feet 9 inches tall, 137 pounds. HEENT: There are neither xanthelasma, subcutaneous xanthomata, oral mucosal or digital cyanosis or kyphoscoliosis present. CHEST: Reveals diminished breath sounds at both bases with bibasilar rales, few expiratory wheezes. CARDIOVASCULAR: Regular rate and rhythm with a normal S1 and increased pulmonic closure sound. ABDOMEN: Soft and nontender. EXTREMITIES: Without pedal edema. Radial pulses are 2+. NEUROLOGIC: He is alert with a nonfocal exam. LABORATORY DATA: EKG demonstrates ventricular pacing. Followup EKG today demonstrates a wide complex tachycardia consistent with "slow" VT, probable slow VT. Sodium is 130, potassium 4.7, creatinine 1.3. ProBNP of 2213, White count 12.1, hemoglobin 9.8, hematocrit 30, platelet count 195. Chest x-ray demonstrates interstitial infiltrates and cardiomegaly. IMPRESSION: 1. Wide complex tachycardia consistent with nonsustained VT, possibly proarrhythmia from flecainide. 2. Chronic obstructive pulmonary disease exacerbation with probable underlying lower respiratory tract infection; moderate pulmonary hypertension (FEV1 46% of predicted). 3. History of chronic diastolic heart failure. 4. History of atrial flutter ablation; history of heart block with [employer]. Reginaldo pacemaker implantation (2017). 5. Normal ejection fraction with RV dysfunction and pulmonary hypertension. 6. Esophageal cancer with esophagectomy and radiation therapy in 2007. 7. History of normal stress study in 04/2017. RECOMMENDATIONS: 1. Stop flecainide. 2. Interrogate pacemaker. 3. Echocardiogram with Doppler to reassess pulmonary artery pressures. 4. Continued use of diuretics, primarily for control of right heart failure. I have discussed these issues with the patient, his and nursing staff. Thank you for asking me to participate in his care. <ELECTRONICALLY SIGNED> By: Jose Alberto Lincoln MD, FACC 02/12/18 0846 [id number] [id number] Jose Alberto Lincoln MD, FACC /nt
--- NOTE | ~2018-02-10 | 2DMMODE ---
[facility] [place] [address] 2 D/M-MODE ECHOCARDIOGRAM Name: ASHWINI CRAMER RAY Room #: 201-P [facility]#: [id number] Admission: 02/10/18 Attend Phys: Eduardo Hsu MD Discharge: Date of : 50 Date of Service: 02/12/18 1149 Report #: [id number] THIS REPORT FOR: //name// APPROVED REPORT Study performed: 02/12/2018 09:54:55 EXAM: Comprehensive 2D, Doppler, and color-flow Echocardiogram Patient Location: In-Patient Room #: 201 Status: routine BSA: 1.78 HR: 107 bpm BP: 111/78 mmHg Other Information Study Quality: Good Indications COPD Pacemaker Hypoxia, SOA 2D Dimensions RVDd: 26.24 mm IVSd: 12.27 (7-11mm) LVOT Diam: 20.79 (18-24mm) LVDd: 29.81 mm PWd: 12.74 (7-11mm) Ascending Ao: 40.85 (22-36mm) LVDs: 23.78 (25-40mm) Aortic Root: 37.46 mm IVC: 25.00 mm Volumes Left Atrial Volume (Systole) Single Plane 4CH: 44.10 mL Single Plane 2CH: 51.36 mL LA ESV Index: 29.00 mL/m2 Aortic Valve AoV Peak Bharathi.: 0.72 m/s AO Peak Gr.: 2.05 mmHg LVOT Max P.42 mmHg LVOT Max V: 0.59 m/s AKIRA Vmax: 2.82 cm2 Mitral Valve E/A Ratio: 3.3 MV Decel. Time: 137.98 ms [facility] [address] [place] [address] 2 D/M-MODE ECHOCARDIOGRAM Name: ASHWINI CRAMER [place] Room #: [address] [place] [address] [place] [facility].#: [id number] Admission: 02/10/18 Attend Phys: Eduardo Hsu MD Discharge: Date of : 50 Date of Service: 02/12/18 1149 Report #: [id number] E Max Bharathi.: 1.40 m/s MV A Bharathi.: 0.43 m/s MV PHT: 40.01 ms IVRT: 83.04 ms Pulmonary Valve PV Peak Bharathi.: 0.43 m/s PV Peak Gr.: 0.75 mmHg Tricuspid Valve TR Peak Bharathi.: 2.38 m/s RAP Estimate: 15.00 mmHg TR Peak Gr.: 22.59 mmHg PA Pressure: 38.00 mmHg Left Ventricle The left ventricle is normal size. Mild concentric left ventricular hypertrophy. The left ventricular systolic function is mildly depressed. Discordant septal motion possibly from RV pacing. LVEF is 45-50%. Right Ventricle The right ventricle is normal size. Right ventricle is hypokinetic. Atria The left atrium size is normal. The right atrium size is normal. Aortic Valve Small aortic valve vegetation is present. Mild aortic regurgitation. There is no aortic valvular stenosis. Mitral Valve Mild mitral annular calcification. Moderate mitral regurgitation jet, very eccentric No evidence of mitral valve stenosis. Tricuspid Valve The tricuspid valve is normal in structure. Moderate tricuspid regurgitation. PAP is estimated at 38 mmHg. Pulmonic Valve The pulmonary valve is normal in structure. Trace to mild pulmonic regurgitation. Great Vessels The aortic root is normal in size. The ascending aorta is mildly dilated at 4.1 cm. IVC is dilated and collapses <50% with [facility] [address] [place] [address] 2 D/M-MODE ECHOCARDIOGRAM Name: ASHWINI CRAMER [place] Room #: 201-P [facility] IN .R.#: [id number] Admission: 02/10/18 Attend Phys: Eduardo Hsu MD Discharge: Date of : 50 Date of Service: 02/12/18 1149 Report #: [id number]. Pericardium There is no pericardial effusion. Critical Notification Critical Value: Yes Physician Notified Date: 02/12/2018 <Conclusion> The left ventricular systolic function is mildly depressed. Discordant septal motion possibly from RV pacing. LVEF is 45-50%. Small aortic valve vegetation is present. Mild aortic regurgitation, no stenosis. Mild mitral annular calcification. Moderate mitral regurgitation jet, very eccentric Moderate tricuspid regurgitation. Pulmonary artery pressure estimated at 38 mmHg. The ascending aorta is mildly dilated at 4.1 cm. There is no pericardial effusion. <ELECTRONICALLY SIGNED> By: Jose Alberto Lincoln MD, FACC 02/12/18 1149 1149 1149 Jose Alberto Lincoln MD, FACC /INF
--- NOTE | ~2018-02-10 | EKG ---
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 02/11/18 0938 [id number] 175 Jose Alberto Lincoln MD, [facility] /EPI
[~2018-02-10 17:19] MED LIST changes: -ALDACTONE50 MG PO; -FLECAINIDE ACE100 MG PO; -FLECAINIDE ACET50 M1 PO; -LASIX 40 MG TAB40 M2 PO
[2018-02-10 17:20] VITALS: BP 97/41
[2018-02-10 18:07] LABS: BE(vivo) -1.2 mmol/L (-2 to +3); HCO3 21.2 mmol/L (22.0-26.0); PCO2 28.6 mmHg (35.0-45.0); PO2 57.7 mmHg (80.0-100.0); pH 7.488 (7.360-7.450); sO2 92.4 % (92.0-98.0)
[2018-02-10 18:32] LABS: ABSOLUTE NEUTROPHILS 9.1 thou/uL (1.4-8.2); BASOPHILS 0.5 % (0.0-2.0); EOSINOPHILS 0.1 % (0.0-3.0); HEMOGLOBIN 10.7 gm/dL (14.0-18.0); LYMPHOCYTES 2.5 % (24.0-44.0); MCH 24.3 pg (26.0-34.0); MCHC 33.4 g/dL (28.0-37.0); MCV 72.9 fL (80.0-100.0); MONOCYTES 6.7 % (1.0-8.0); PLATELET COUNT 226 thou/uL (150-400); POLYS 90.2 % (36.0-66.0); RDW 19.2 % (10.5-14.5); WBC 10.1 thou/uL (4.0-11.0)
[2018-02-10 18:46] LABS: ANION GAP 12 mmol/L (7-16); BUN 33 mg/dL (7-18); CALCIUM 9.3 mg/dL (8.5-10.1); CHLORIDE 92 mmol/L (98-107); CO2 25 mmol/L (21-32); CREATININE 1.5 mg/dL (0.7-1.3); GLUCOSE 107 mg/dL (74-106); POTASSIUM 4.2 mmol/L (3.5-5.1); SODIUM 129 mmol/L (136-145)
[2018-02-10 18:52] LABS: APTT 23.1 Seconds (24.5-32.8); D-DIMER 4.25 ug/mLFEU (0.19-0.50); INR 1.5; PROTIME 15.6 Seconds (9.3-11.4)
[2018-02-10 18:54] LABS: ALBUMIN 3.5 g/dL (3.4-5.0); MAGNESIUM 2.1 mg/dL (1.8-2.4); SGOT 35 U/L (15-37); SGPT 24 U/L (30-65); TOTAL BILIRUBIN 1.7 mg/dL (<0.1-1.0); TOTAL PROTEIN 7.9 g/dL (6.4-8.2); TROPONIN-I <0.06 ng/mL (<0.06)
[2018-02-10 19:20] LABS: URINE BILIRUBIN NEGATIVE (Negative); URINE BLOOD TRACE (Negative); URINE CLARITY CLEAR; URINE COLOR YELLOW; URINE GLUCOSE-RANDOM* NEGATIVE (Negative); URINE KETONES NEGATIVE (Negative); URINE LEUKOCYTES-REFLEX NEGATIVE (Negative); URINE NITRITE-REFLEX NEGATIVE (Negative); URINE PROTEIN (DIPSTICK) NEGATIVE (Negative); URINE SPECIFIC GRAVITY 1.025 (1.005-1.035); URINE UROBILINOGEN 0.2 E.U./dl (0.2-1.0)
[2018-02-10 19:29] LABS: AMP/METHAMP Negative (Negative); BARBITURATES Negative (Negative); BENZODIAZEPINES Negative (Negative); COCAINE Negative (Negative); METHADONE Negative (Negative); OPIATES POSITIVE (Negative); PCP Negative (Negative)
[2018-02-10] MEDS ORDERED: LASIX 40 MG TAB40 M2 PO (20:12)
[2018-02-10] MEDS ORDERED: FLECAINIDE ACE100 MG PO (20:14)
[2018-02-10] MEDS ORDERED: FLECAINIDE ACET50 M1 PO (20:14)
[2018-02-10] MEDS ORDERED: ALDACTONE50 MG PO (20:15)
[2018-02-10 20:32] VITALS: BP 90/53
[2018-02-10 21:00] VITALS: BP 92/55
[2018-02-10 21:51] VITALS: BP 100/58
[2018-02-11] VITALS (7 sets, daily range): BP systolic 84–93; BP diastolic 50–69
[2018-02-11 04:26] LABS: HEMATOCRIT 30.6 % (42.0-52.0); HEMOGLOBIN 9.8 gm/dL (14.0-18.0); MCH 23.8 pg (26.0-34.0); MCHC 32.1 g/dL (28.0-37.0); MCV 74.1 fL (80.0-100.0); RBC 4.14 mil/uL (4.50-6.00); RDW 18.7 % (10.5-14.5); WBC 12.2 thou/uL (4.0-11.0)
[2018-02-11 04:42] LABS: CALCIUM 8.6 mg/dL (8.5-10.1); CREATININE 1.3 mg/dL (0.7-1.3); POTASSIUM 4.7 mmol/L (3.5-5.1)
[2018-02-12 00:12] VITALS: BP 102/69
[2018-02-12 03:28] VITALS: BP 100/69
[2018-02-12 03:41] LABS: HEMATOCRIT 32.1 % (42.0-52.0); HEMOGLOBIN 10.1 gm/dL (14.0-18.0); MCHC 31.5 g/dL (28.0-37.0); RBC 4.4 mil/uL (4.50-6.00); RDW 19.6 % (10.5-14.5); WBC 6.7 thou/uL (4.0-11.0)
[2018-02-12 03:52] LABS: CALCIUM 8.5 mg/dL (8.5-10.1); CREATININE 1.3 mg/dL (0.7-1.3); POTASSIUM 4.7 mmol/L (3.5-5.1)
[2018-02-12 07:05] VITALS: BP 111/78
[2018-02-12 11:10] VITALS: BP 119/55
[2018-02-12 11:41] LABS: % SATURATION 3 % (20-39); IRON 12 ug/dL (65-175); TIBC 420 ug/dL (250-450)
[2018-02-12 17:00] VITALS: BP 107/67
[2018-02-12 19:21] VITALS: BP 101/66
[2018-02-13 03:40] LABS: HEMATOCRIT 31.3 % (42.0-52.0); HEMOGLOBIN 9.9 gm/dL (14.0-18.0); MCH 23.4 pg (26.0-34.0); MCHC 31.8 g/dL (28.0-37.0); MCV 73.5 fL (80.0-100.0); RBC 4.25 mil/uL (4.50-6.00); RDW 19.9 % (10.5-14.5); WBC 7.5 thou/uL (4.0-11.0)
[2018-02-13 04:15] VITALS: BP 98/71
[2018-02-13 04:19] LABS: CALCIUM 8.6 mg/dL (8.5-10.1); CREATININE 1.2 mg/dL (0.7-1.3)
[2018-02-13 07:20] VITALS: BP 92/68
[2018-02-13 11:15] VITALS: BP 108/64
[2018-02-13 15:25] VITALS: BP 101/68
[2018-02-13 20:22] VITALS: BP 98/69
[2018-02-14 03:26] LABS: HEMATOCRIT 31.7 % (42.0-52.0); HEMOGLOBIN 10.4 gm/dL (14.0-18.0); MCH 24.2 pg (26.0-34.0); MCHC 32.8 g/dL (28.0-37.0); MCV 73.8 fL (80.0-100.0); RBC 4.29 mil/uL (4.50-6.00); RDW 19.6 % (10.5-14.5); WBC 8.8 thou/uL (4.0-11.0)
[2018-02-14 03:35] LABS: CALCIUM 8.7 mg/dL (8.5-10.1); CREATININE 1.1 mg/dL (0.7-1.3); POTASSIUM 4.5 mmol/L (3.5-5.1)
[2018-02-14 04:18] VITALS: BP 100/69
[2018-02-14] MEDS ORDERED: LASIX 40 MG TAB40 M2 PO ×2 (08:47→13:22)
[2018-02-14] MEDS ORDERED: PRADAXA150 MG PO (08:47)
[2018-02-14 09:33] VITALS: BP 108/75
[2018-02-14 11:48] VITALS: BP 106/71
[2018-02-14] MEDS ORDERED: MIRALAX17 GM PO (13:22)
[2018-02-14] MEDS ORDERED: AMOXICILLIN 50500 MG PO (13:22)
[2018-02-14] MEDS ORDERED: PREDNISONE 10 M10 MG PO (13:22)
[2018-02-14] MEDS ORDERED: TYLENOL325 MG PO (13:22)
[2018-02-14] MEDS ORDERED: SYNTHROID75 MCG PO (13:22)
[2018-02-14] MEDS ORDERED: POTASSIUM20 PO (13:22)
[2018-02-14] MEDS ORDERED: IRON325 PO (13:28)
[2018-02-14] MEDS ORDERED: PROBIOTIC1 EAC1 PO (13:28)
[2018-02-14] MEDS ORDERED: OTHER MISCELL (13:38)
[2018-02-14 14:50] VITALS: BP 112/75; BP 113/63; BP 117/75
[2018-02-14 15:18] VITALS: BP 112/75
[2018-02-14 15:23] VITALS: BP 112/75
== END 2018-02-14 17:00 | disposition home or self-care (01) | DRG 871 ==
LOC: ER 17:19 → 2N 19:56 → EROBS 19:56 → 2N 21:54 → ENTRNSPT 02-14 16:33 → 2N 02-14 17:00
PROVIDERS: Emergency Medicine; Hospitalist; Internal Medicine Pulmonary Disease; Nurse Practitioner; Nurse Practitioner Family
DX: A41.9 Sepsis, unspecified organism (principal); J96.01 Acute respiratory failure with hypoxia; N17.9 Acute kidney failure, unspecified; I48.92 Unspecified atrial flutter; J44.1 Chronic obstructive pulmonary disease with (acute) exacerbation; I50.32 Chronic diastolic (congestive) heart failure; I47.2 Ventricular tachycardia; J20.9 Acute bronchitis, unspecified; K21.9 Gastro-esophageal reflux disease without esophagitis; I27.20 Pulmonary hypertension, unspecified; R33.9 Retention of urine, unspecified; I49.9 Cardiac arrhythmia, unspecified; I48.91 Unspecified atrial fibrillation; D50.9 Iron deficiency anemia, unspecified; I45.9 Conduction disorder, unspecified; Z92.21 Personal history of antineoplastic chemotherapy; Z92.3 Personal history of irradiation; Z93.4 Other artificial openings of gastrointestinal tract status; Z85.01 Personal history of malignant neoplasm of esophagus; Z79.82 Long term (current) use of aspirin; Z79.899 Other long term (current) drug therapy; Z87.891 Personal history of nicotine dependence; Z82.49 Family history of ischemic heart disease and other diseases of the circulatory system; Z82.3 Family history of stroke; Z95.810 Presence of automatic (implantable) cardiac defibrillator; Z28.21 Immunization not carried out because of patient refusal
CPT/HCPCS: 10081

== ENCOUNTER → 2018-06-12 | Outpatient (CLI) | payer OTHER ==
[~2018-06-12] MED LIST changes: +ALDACTONE50 MG PO; +AMOXICILLIN 50500 MG PO; +FLECAINIDE ACE100 MG PO; +FLECAINIDE ACET50 M1 PO; +IRON325 PO; +LASIX 40 MG TAB40 M2 PO; +MIRALAX17 GM PO; +OTHER MISCELL; +PREDNISONE 10 M10 MG PO; +PROBIOTIC1 EAC1 PO; +SYNTHROID75 MCG PO; +TYLENOL325 MG PO
== END ==
LOC: ULTRA 09:05
DX: K76.0 Fatty (change of) liver, not elsewhere classified (principal); K81.1 Chronic cholecystitis

== ENCOUNTER → 2018-06-25 | Outpatient (CLI) | payer OTHER | LOC: RAD 12:21 | DX: J98.4 Other disorders of lung (principal); R91.8 Other nonspecific abnormal finding of lung field; J90 Pleural effusion, not elsewhere classified; Z95.0 Presence of cardiac pacemaker ==